=== PATIENT | female | born 1940 | race Caucasian/White ===

== ENCOUNTER 2017-11-06 07:55 | Day surgery (SDC) | payer MEDICARE, OTHER ==
[2017-11-06] MEDS ORDERED: Ketamine HCl 50 MG/ML IV ONE (07:56)
[2017-11-06] MEDS ORDERED: DIPRIVAN 200 MG/20 ML IV ONE (07:56)
--- NOTE | 2017-11-06 08:10 | HP ---
DATE OF SURGERY: 11/06/2017 HISTORY OF PRESENT ILLNESS: The patient is a 77 year-old with gross bloody stools, had positive Cologuard test, history of spinal stenosis and arthritis, chronic aches and pains. No change in bowel movements. She does have daily bowel movements. She does have incontinence and chronic spinal stenosis issues. She has been on gabapentin but not helping. She lays down to help her chronic aches and pains. She has history of polyps in the past. She has had positive Cologuard. She is in need of follow up colonoscopy. PAST MEDICAL HISTORY: Hyperlipidemia, aortic aneurysm in the past, hypertensive heart disease. PAST SURGICAL HISTORY: Hysterectomy and tubal in the past. Carotid surgery, cholecystectomy, appendectomy and endoscopy in the past. Endovascular aneurysm repair by Dr. Dukes a few weeks ago according to the patient. MEDICATIONS: Atorvastatin for some hyperlipidemia, hydrocodone, Centrum Silver, isosorbide mononitrate, lansoprazole, meloxicam, metoprolol, Naprosyn, Nitrostat, Norvasc, Paxil, VESIcare, Xanax. ALLERGIES: SULFA. VERSED REACTION. ASPIRIN CAUSES BURNING OF STOMACH. SENSITIVE TO TAPE ALTHOUGH SHE DOES TOLERATE PAPER TAPE. FAMILY HISTORY: Father of colon cancer. Heart disease. SOCIAL HISTORY: History of smoking. REVIEW OF SYSTEMS: Twelve systems reviewed per admission assessment. No chest pain or palpitations other systems negative or noncontributory as above and per preadmission questionnaire. PHYSICAL EXAMINATION: GENERAL: No acute distress. HEENT: Sclerae nonicteric. NECK: No JVD. CHEST: Equal excursion, nonlabored breathing. CVS: Regular rate and rhythm. ABDOMEN: Soft. No peritoneal signs. EXTREMITIES: No edema. NEURO: Alert, oriented. RECTAL: Deferred timed to endoscopy exam. IMPRESSION: History of polyps, positive Cologuard. The patient is in need of follow up colonoscopy. Risks and benefits explained in detail, shown the risk sheet and explained the procedure in detail but not limited to bleeding or infection, small risk of bowel injury or perforation possibly requiring open procedure, small risk of missed or nondiagnosis or incomplete exam possibly requiring barium enema, other studies or procedures, general risk of anesthesia or sedation but not limited to. She understands and agrees to the planned procedure and will proceed with outpatient colonoscopy under MAC anesthesia.
[2017-11-06] MEDS ORDERED: Lactated Ringers 1,000 ML IV SCH (08:30)
[2017-11-06] MEDS ORDERED: Lactated Ringers 1,000 ML IV ONE (11:04)
[2017-11-06 12:17] VITALS: PULSE 66; O2SAT 94
[2017-11-06 12:21] VITALS: BP 149/66
--- NOTE | 2017-11-07 08:17 | OP ---
SURGERY DATE/TIME: 11/06/2017 1030 PREOPERATIVE DIAGNOSIS: History of positive Cologuard test, history of polyps in the past need for follow up colonoscopy. POSTOPERATIVE DIAGNOSES: 1) Small raised lesion versus early polyp's transverse colon, descending colon, sigmoid colon, upper rectum as well as distal rectum. 2) Small internal and external hemorrhoids. 3) Limited sphincter tone (the patient has history of spinal stenosis in the past). 4) Diverticulosis. 5) Poor right colon prep limiting exam. PROCEDURES: Colonoscopy to cecum with hot biopsy removal small raised lesion versus early polyps transverse colon, descending colon, sigmoid colon, upper rectum, distal rectum. SURGEON: Dr. Ozzie Xiao. ANESTHESIA: MAC. ESTIMATED BLOOD LOSS: Minimal. INDICATIONS: As noted above. Risks and benefits explained in detail but not limited to and consent obtained. DESCRIPTION OF PROCEDURE AND FINDINGS: The patient is taken to the endoscopy room. MAC anesthesia introduced. After official time out and no disagreement with planned procedure, digital rectal exam did not reveal any rectal masses. She did have some internal and external hemorrhoids. Her sphincter had a little decreased tone. She has history of spinal stenosis. She had prior history of some incontinence issues. The scope was passed up through the tortuous sigmoid, descending, transverse, ascending colon to the cecum. Palpation and visualization of appendiceal orifice and valve were all visualized. Prep overall was poor particularly in the right colon. It was a little bit better in the more distal sigmoid and rectum but did limit the exam for small lesions. The scope was slowly and carefully withdrawn. There were no signs of any large polyps, masses or obstructing lesions. She had small raised lesions in the transverse colon x2 in the descending colon as well as sigmoid colon, upper rectum as well as distal rectum. Small raised lesion versus hyperplastic lesions versus early polyps. Path pending. These were removed with hot biopsy forceps with brief bursts of cautery. Good hemostasis is noted. Otherwise she had some diverticulosis. She also had some small internal and external hemorrhoids in the rectum. No signs of any large polyps, masses or obstructing lesions. Again, the prep in the right colon did limit the exam for small lesions. There were no immediate complications. Findings discussed with the family out in the waiting area.
== END 2017-11-06 12:15 | disposition home or self-care (01) ==
LOC: SDC 07:55
PROVIDERS: ATTEND Surgery
PROC: 0DBM8ZX Excision of Descending Colon, Via Natural or Artificial Opening Endoscopic, Diagnostic (ICD-10-PCS; principal; 2017-11-06)
PROC: 0DBL8ZX Excision of Transverse Colon, Via Natural or Artificial Opening Endoscopic, Diagnostic (ICD-10-PCS; 2017-11-06)
PROC: 0DBN8ZX Excision of Sigmoid Colon, Via Natural or Artificial Opening Endoscopic, Diagnostic (ICD-10-PCS; 2017-11-06)
PROC: 0DBP8ZX Excision of Rectum, Via Natural or Artificial Opening Endoscopic, Diagnostic (ICD-10-PCS; 2017-11-06)
DX: Z86.010 Personal history of colon polyps (principal); K63.5 Polyp of colon; K63.9 Disease of intestine, unspecified; K62.9 Disease of anus and rectum, unspecified; K64.4 Residual hemorrhoidal skin tags; K64.8 Other hemorrhoids; M48.00 Spinal stenosis, site unspecified; K57.30 Diverticulosis of large intestine without perforation or abscess without bleeding; Z12.11 Encounter for screening for malignant neoplasm of colon; E78.5 Hyperlipidemia, unspecified; Z80.0 Family history of malignant neoplasm of digestive organs; Z79.899 Other long term (current) drug therapy
CPT/HCPCS: 88305; 99100; J2704

== ENCOUNTER 2018-08-01 12:19 | Day surgery (SDC) | payer MEDICARE, OTHER ==
[2018-08-01] MEDS ORDERED: Depo-Medrol 40 MG/ML IJ ONE (12:20)
[2018-08-01] MEDS ORDERED: DIPRIVAN 200 MG/20 ML IV ONE (12:20)
[2018-08-01] MEDS ORDERED: Xylocaine-Mpf 2% 5 Ml Vial IJ ONE (12:20)
[2018-08-01] MEDS ORDERED: Lactated Ringers 1,000 ML IV ONE (14:33)
--- NOTE | 2018-08-01 14:56 | XRAY ---
Indication: L4-S1 MBB. Intraoperative fluoroscopy was provided for 11 seconds. Single digital spot image submitted for interpretation demonstrates posterior spinal needle tips projecting over the expected course of the left and right L4-S1 nerve roots. Correlate with intraoperative findings/report. Incidental partially visualized aortobiiliac stent graft.
--- NOTE | 2018-08-01 15:10 | XRAY ---
11 seconds of fluoroscopy was used in surgery for L4 L5 L5/S1 MBB.
== END 2018-08-01 14:32 | disposition home or self-care (01) ==
LOC: SDC-PAIN 12:19
PROVIDERS: ATTEND Psychiatry & Neurology Pain Medicine
DX: M47.817 Spondylosis without myelopathy or radiculopathy, lumbosacral region (principal); M54.5 Low back pain; M46.96 Unspecified inflammatory spondylopathy, lumbar region
CPT/HCPCS: 64493; 64494; 72020; 77003; J1030; J2704

== ENCOUNTER 2018-09-05 09:12 | Day surgery (SDC) | payer MEDICARE, OTHER ==
[2018-09-05] MEDS ORDERED: Marcaine 0.5% SDV 10 ML IJ ONE (09:13)
[2018-09-05] MEDS ORDERED: Ketamine HCl 50 MG/ML IJ ONE (09:13)
[2018-09-05] MEDS ORDERED: Depo-Medrol 40 MG/ML IM ONE (09:13)
[2018-09-05] MEDS ORDERED: DIPRIVAN 200 MG/20 ML IV ONE (09:13)
[2018-09-05] MEDS ORDERED: Xylocaine 1% Vial 30 ML PF IJ ONE (09:13)
[2018-09-05] MEDS ORDERED: Lactated Ringers 1,000 ML IV ONE (09:17)
--- NOTE | 2018-09-05 12:13 | XRAY ---
Indication: L4-S1 MBB. Intraoperative fluoroscopy was provided for 17 seconds. Single digital spot image submitted for interpretation demonstrates posterior spinal needle tips projecting over the expected course of the left and right L4-S1 nerve roots. Correlate with intraoperative findings/report. Incidental partially visualized aortobiiliac stent graft.
--- NOTE | 2018-09-05 12:16 | XRAY ---
17 seconds fluoroscopy time in surgery for L4-S1 MBB.
== END 2018-09-05 11:32 | disposition home or self-care (01) ==
LOC: SDC-PAIN 09:12
PROVIDERS: ATTEND Psychiatry & Neurology Pain Medicine
DX: M47.817 Spondylosis without myelopathy or radiculopathy, lumbosacral region (principal); I10 Essential (primary) hypertension; Z79.899 Other long term (current) drug therapy
CPT/HCPCS: 64493; 64494; 72020; 77002; 99100; J1030; J2001; J2704

== ENCOUNTER 2018-09-26 13:05 | Day surgery (SDC) | payer MEDICARE, OTHER ==
[2018-09-26] MEDS ORDERED: DIPRIVAN 200 MG/20 ML IV ONE (13:06)
[2018-09-26] MEDS ORDERED: LIDOCAINE HCL 2% 100 MG/5 ML IJ ONE (13:06)
[2018-09-26] MEDS ORDERED: Depo-Medrol 40 MG/ML IM ONE (13:06)
[2018-09-26] MEDS ORDERED: Xylocaine 1% Vial 30 ML PF IJ ONE (13:06)
[2018-09-26] MEDS ORDERED: Marcaine 0.5% SDV 10 ML IJ ONE (13:06)
[2018-09-26] MEDS ORDERED: Ketamine HCl 50 MG/ML IJ ONE (13:06)
[2018-09-26] MEDS ORDERED: Lactated Ringers 1,000 ML IV ONE (14:26)
--- NOTE | 2018-09-26 16:25 | XRAY ---
Indication: Right L4-S1 RFA. Intraoperative fluoroscopy was provided for 23 seconds. 3 digital spot images submitted for interpretation demonstrates posterior needle tips in the expected region of the right L4-S1 nerve roots. Correlate with intraoperative findings/report. Incidental partially visualized aortobiiliac stent graft.
--- NOTE | 2018-09-26 16:27 | XRAY ---
23 seconds of fluoroscopy was used in surgery for right L4-L5 and L5-S1 RFA.
== END 2018-09-26 15:42 | disposition home or self-care (01) ==
LOC: SDC-PAIN 13:05
PROVIDERS: ATTEND Psychiatry & Neurology Pain Medicine
DX: M47.817 Spondylosis without myelopathy or radiculopathy, lumbosacral region (principal); I10 Essential (primary) hypertension; E78.00 Pure hypercholesterolemia, unspecified; K21.9 Gastro-esophageal reflux disease without esophagitis; F41.8 Other specified anxiety disorders; Z79.899 Other long term (current) drug therapy
CPT/HCPCS: 64635; 64636; 72100; 77002; 99100; J1030; J2001; J2704

== ENCOUNTER 2018-10-10 13:07 | Day surgery (SDC) | payer MEDICARE, OTHER ==
[2018-10-10] MEDS ORDERED: Ketamine HCl 50 MG/ML IJ ONE (13:08)
[2018-10-10] MEDS ORDERED: DIPRIVAN 200 MG/20 ML IV ONE (13:08)
[2018-10-10] MEDS ORDERED: Xylocaine 1% Vial 30 ML PF IJ ONE (13:08)
[2018-10-10] MEDS ORDERED: Depo-Medrol 40 MG/ML IM ONE (13:08)
[2018-10-10] MEDS ORDERED: Marcaine 0.5% SDV 10 ML IJ ONE (13:08)
--- NOTE | 2018-10-10 15:05 | XRAY ---
21 seconds fluoroscopy time in surgery for left L4-S1 RFA.
--- NOTE | 2018-10-10 15:07 | XRAY ---
Indication: Left L4-S1 RFA. Intraoperative fluoroscopy was provided for 21 seconds. 2 digital spot images submitted for interpretation demonstrates posterior needle tips along the expected course of the left L4-S1 nerve roots. Correlate with intraoperative findings/report. Incidental partially visualized aortobiiliac stent graft
[2018-10-10] MEDS ORDERED: Lactated Ringers 1,000 ML IV ONE (18:06)
== END 2018-10-10 14:52 | disposition home or self-care (01) ==
LOC: SDC-PAIN 13:07
PROVIDERS: ATTEND Psychiatry & Neurology Pain Medicine
DX: M47.817 Spondylosis without myelopathy or radiculopathy, lumbosacral region (principal); Z79.899 Other long term (current) drug therapy; I10 Essential (primary) hypertension; E78.00 Pure hypercholesterolemia, unspecified; M19.90 Unspecified osteoarthritis, unspecified site; K21.9 Gastro-esophageal reflux disease without esophagitis
CPT/HCPCS: 64635; 64636; 72100; 77002; 99100; J1030; J2001; J2704

== ENCOUNTER 2019-01-02 10:45 | Day surgery (SDC) | payer MEDICARE, OTHER ==
[2019-01-02] MEDS ORDERED: Depo-Medrol 40 MG/ML IM ONE (10:46)
[2019-01-02] MEDS ORDERED: Marcaine 0.5% SDV 10 ML IJ ONE (10:46)
[2019-01-02] MEDS ORDERED: DIPRIVAN 200 MG/20 ML IV ONE (12:02)
[2019-01-02] MEDS ORDERED: Ketamine HCl 50 MG/ML ONE (12:03)
--- NOTE | 2019-01-02 13:21 | XRAY ---
Indication: Bilateral SI joint injection. Intraoperative fluoroscopy was provided for 20 seconds. 4 digital spot images submitted for interpretation demonstrates posterior needle tips projecting over the inferior left and right SI joints. Correlate with intraoperative findings/report. Incidental partially visualized bilateral iliac stent grafts.
--- NOTE | 2019-01-02 13:21 | XRAY ---
20 seconds fluoroscopy time in surgery for bilateral SI joint injection.
[2019-01-02] MEDS ORDERED: Lactated Ringers 1,000 ML IV ONE (13:27)
== END 2019-01-02 12:36 | disposition home or self-care (01) ==
LOC: SDC-PAIN 10:45
PROVIDERS: ATTEND Psychiatry & Neurology Pain Medicine
DX: M46.1 Sacroiliitis, not elsewhere classified (principal); M53.3 Sacrococcygeal disorders, not elsewhere classified; I10 Essential (primary) hypertension; E78.00 Pure hypercholesterolemia, unspecified; K21.9 Gastro-esophageal reflux disease without esophagitis; F41.8 Other specified anxiety disorders
CPT/HCPCS: 72202; 77002; G0260; 27096; 99100; J1030; J2704

== ENCOUNTER 2019-01-30 10:42 | Day surgery (SDC) | payer MEDICARE, OTHER ==
[2019-01-30] MEDS ORDERED: Depo-Medrol 40 MG/ML IM ONE (10:43)
[2019-01-30] MEDS ORDERED: Marcaine 0.5% SDV 10 ML IJ ONE (10:43)
[2019-01-30] MEDS ORDERED: Ketamine HCl 50 MG/ML ONE (11:38)
[2019-01-30] MEDS ORDERED: DIPRIVAN 200 MG/20 ML IV ONE (11:38)
--- NOTE | 2019-01-30 14:16 | XRAY ---
Indication: Left shoulder injection. Intraoperative fluoroscopy was provided for 17 seconds. Single digital spot image submitted for interpretation demonstrates needle tip projecting over the left superior glenohumeral joint. Small amount of contrast injected for needle tip placement. Correlate with intraoperative findings/report.
--- NOTE | 2019-01-30 14:28 | XRAY ---
17 seconds fluoroscopy time in surgery for left shoulder injection.
[2019-01-30] MEDS ORDERED: Lactated Ringers 1,000 ML IV ONE (15:53)
== END 2019-01-30 12:20 | disposition home or self-care (01) ==
LOC: SDC-PAIN 10:42
PROVIDERS: ATTEND Psychiatry & Neurology Pain Medicine
DX: M19.012 Primary osteoarthritis, left shoulder (principal); M19.011 Primary osteoarthritis, right shoulder; I10 Essential (primary) hypertension; E78.00 Pure hypercholesterolemia, unspecified; F41.9 Anxiety disorder, unspecified; K21.9 Gastro-esophageal reflux disease without esophagitis
CPT/HCPCS: 73030; 77002; J1030; J2704

== ENCOUNTER 2019-03-13 12:24 | Day surgery (SDC) | payer MEDICARE, OTHER ==
[2019-03-13] MEDS ORDERED: Marcaine 0.5% SDV 10 ML IJ ONE (12:25)
[2019-03-13] MEDS ORDERED: Depo-Medrol 40 MG/ML IM ONE (12:25)
[2019-03-13] MEDS ORDERED: DIPRIVAN 200 MG/20 ML IV ONE (13:45)
[2019-03-13] MEDS ORDERED: Ketamine HCl 50 MG/ML ONE (13:45)
--- NOTE | 2019-03-13 14:50 | XRAY ---
Indication: Bilateral SI joint injection. Intraoperative fluoroscopy was provided for 14 seconds. 4 digital spot images submitted for interpretation demonstrates posterior needle tip projecting over the inferior left and right SI joint. Correlate with intraoperative findings/report. Incidental partially visualized bilateral iliac stent grafts.
--- NOTE | 2019-03-13 14:53 | XRAY ---
14 seconds fluoroscopy time in surgery for bilateral SI joints.
[2019-03-13] MEDS ORDERED: Lactated Ringers 1,000 ML IV ONE (15:55)
== END 2019-03-13 14:20 | disposition home or self-care (01) ==
LOC: SDC-PAIN 12:24
PROVIDERS: ATTEND Psychiatry & Neurology Pain Medicine
DX: M46.1 Sacroiliitis, not elsewhere classified (principal); I10 Essential (primary) hypertension; E78.00 Pure hypercholesterolemia, unspecified; F41.8 Other specified anxiety disorders; K21.9 Gastro-esophageal reflux disease without esophagitis; Z79.899 Other long term (current) drug therapy
CPT/HCPCS: 72202; 77002; J1030; J2704

== ENCOUNTER 2019-04-12 12:28 | Emergency (ER) | payer MEDICARE, OTHER ==
[2019-04-12 13:29] LABS: Hematocrit 36.9 % (35-47); Mean Cell Volume 82.6 fl (78-100); Mean Corpuscular Hemoglobin 26.8 pg (26-32); Mean Corpuscular Hgb Concent. 32.5 g/dl (32-36); Platelet Count 210 K/mm3 (150-450); Red Blood Count 4.47 M/mm3 (4.1-5.4); Red Cell Distribution Width 16.3 % (11.5-14.0); White Blood Count 11.6 K/mm3 (4.0-10.5)
[2019-04-12 13:47] LABS: ALBUMIN 3.2 g/dL (3.5-5.0); ANION GAP 12.2 MEQ/L (5-15); BILIRUBIN,TOTAL 0.6 mg/dL (0.2-1.3); Creatinine 1 1.14 mg/dL (0.52-1.04); Potassium 3.6 mmol/L (3.5-5.1); Total Protein 6.7 g/dL (6.3-8.2)
[2019-04-12 14:04] LABS: BAND 16 % (0.0-2.0); Lymphocytes 14 % (24-44); Monocyte 5 % (0.0-12.0); Neutrophils 65 % (36.0-66.0); Total Cells Counted 100
[2019-04-12 14:05] LABS: Platelet Estimate NORMAL (NORMAL)
[2019-04-12 14:06] LABS: Absolute Neutrophil Ct (ANC) 9.38 (1.4-6.9)
[2019-04-12 15:47] LABS: Appearance SLIGHTLY CLOUDY (CLEAR); Bacteria MANY /HPF (NEGATIVE); Bilirubin NEGATIVE (NEGATIVE); Blood MODERATE Ery/ul (0-5); Epithelial Cells RARE /HPF (FEW); Glucose NEGATIVE (NEGATIVE); Ketones NEGATIVE (NEGATIVE); Leukocyte Esterase SMALL (NEGATIVE); Mucus SLIGHT /HPF (NEGATIVE); Nitrite POSITIVE (NEGATIVE); Protein,Urine Dip 30 (Negative); Specific Gravity 1.014 (1.005-1.025); Urobilinogen 2 mg/dL (0-1)
--- NOTE | 2019-04-12 16:02 | ERPHSYRPT ---
- History of Present Illness Time Seen by Provider: 04/12/19 13:20 Source: patient Exam Limitations: no limitations Patient Subjective Stated Complaint: STATES HAS SPELLS OF WEAKNESS INTERMITTENTLY AND STARTED FEELING WEAK YESTERDAY. DENIES PAIN Triage Nursing Assessment: TO ROOM PER EMS COT. SKIN W/D, COLOR PALE, RESP NONLABORED. Physician History: Went to doctor and told them about this; very worried about why she has had this change in her normal self. ordered lab tests but they have not been done yet. Timing/Duration: week(s) (1) Severity: moderate Modifying Factors: Improves With: nothing Associated Symptoms: other (Just not feeling right; weak at times and not usual self) Allergies/Adverse Reactions: Sulfa (Sulfonamide Antibiotics) Allergy (Mild, Verified 04/12/19 12:47) states could not sleep adhesive tape Adverse Reaction (Mild, Verified 04/12/19 12:47) Rash Home Medications: Amlodipine Besylate [Norvasc] 5 mg PO DAILY 10/24/17 [History] Atorvastatin Calcium 80 mg PO HS 10/24/17 [History] Gabapentin [Neurontin] 300 mg PO TID 10/24/17 [History] Isosorbide Mononitrate 30 mg [Imdur 30 MG] 30 mg PO DAILY 10/24/17 [History ] Lansoprazole [Prevacid] 30 mg PO DAILY 10/24/17 [History] Metoprolol Succinate 50 mg [Toprol Xl 50 MG] 50 mg PO DAILY 10/24/17 [ History] Paroxetine HCl [Paxil] 40 mg PO DAILY 10/24/17 [History] Alprazolam [Xanax] 2 mg PO DAILY 11/06/17 [History] Hx Tetanus, Diphtheria Vaccination/Date Given: No Hx Influenza Vaccination/Date Given: Yes Hx Pneumococcal Vaccination/Date Given: No - Review of Systems Constitutional: Lethargy (mild) Respiratory: No Symptoms, No Cough, No Cyanosis, No Dyspnea, No Dyspnea on Exertion (BROWER) Cardiac: No Symptoms, No Chest Pain, No Edema, No Palpitations Abdominal/Gastrointestinal: No Symptoms, No Abdominal Pain, No Nausea, No Vomiting, No Diarrhea Genitourinary Symptoms: No Symptoms, No Dysuria, No Frequency, No Hematuria, No Hesitancy (Denies UTI symptoms) All Other Systems: Reviewed and Negative - Past Medical History Pertinent Past Medical History: Yes Neurological History: No Pertinent History ENT History: No Pertinent History Cardiac History: Aneurysm, Angina, High Cholesterol, Hypertension Respiratory History: No Pertinent History Endocrine Medical History: No Pertinent History Musculoskeletal History: Arthritis GI Medical History: No Pertinent History History: No Pertinent History Psycho-Social History: Anxiety, Depression Female Reproductive Disorders: No Pertinent History - Past Surgical History Past Surgical History: Yes Neuro Surgical History: No Pertinent History Cardiac: Cardiac Catheterization, Vascular Surgery, Other Respiratory: No Pertinent History Gastrointestinal: Appendectomy, Cholecystectomy Genitourinary: No Pertinent History Musculoskeletal: Other Female Surgical History: Hysterectomy Other Surgical History: carpal tunnel,states "october aneurysm repair thru groin",skin cancer removed from face, 1971 hyster with dx of cancer, varicose veins surgery - Social History Smoking Status: Current every day smoker How long have you smoked: 62 Exposure to second hand smoke: Yes Drug Use: none Patient Lives Alone: No - Female History Hx Now: No - Nursing Vital Signs Nursing Vital Signs: Initial Vital Signs Temperature 98.1 F 04/12/19 12:39 Pulse Rate 71 04/12/19 12:39 Respiratory Rate 16 04/12/19 12:39 Blood Pressure 112/65 04/12/19 12:39 O2 Sat by Pulse Oximetry 95 04/12/19 12:39 Pain Scale Pain Intensity 0 - Physical Exam General Appearance: no apparent distress Eye Exam: PERRL/EOMI, eyes nml inspection, scleral icterus, No photophobia Ears, Nose, Throat Exam: normal ENT inspection, pharynx normal, moist mucous membranes Neck Exam: normal inspection, non-tender, supple, full range of motion Respiratory Exam: normal breath sounds, chest tenderness, lungs clear, airway intact, No respiratory distress, No diminished breath sounds Cardiovascular Exam: regular rate/rhythm, normal heart sounds, normal peripheral pulses, No edema Gastrointestinal/Abdomen Exam: soft, No tenderness Extremity Exam: normal inspection, No madeline's sign, No joint swelling, No pedal edema Neurologic Exam: alert, 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, cooperative Skin Exam: normal color, warm, dry, No rash SpO2 Interpretation: normal SpO2: 93 O2 Delivery: Room Air - Course Nursing assessment & vital signs reviewed: Yes Lab/Rad Data: Laboratory Result Diagrams 04/12/19 13:20 04/12/19 13:20 Laboratory Results 04/12/19 04/12/19 04/12/19 Range/Units 14:34 13:20 13:20 WBC 11.6 H (4.0-10.5) K/mm3 RBC 4.47 (4.1-5.4) M/mm3 Hgb 12.0 (12.0-16.0) gm/dl Hct 36.9 (35-47) % MCV 82.6 (78-100) fl MCH 26.8 (26-32) pg MCHC 32.5 (32-36) g/dl RDW 16.3 H (11.5-14.0) % Plt Count 210 (150-450) K/mm3 MPV 10.0 H (6-9.5) fl Absolute Granulocytes 9.38 H (1.4-6.9) Segmented Neutrophils 65 (36.0-66.0) % Band Neutrophils 16 H (0.0-2.0) % Lymphocytes (Manual) 14 L (24-44) % Monocytes (Manual) 5 (0.0-12.0) % Platelet Estimate NORMAL (NORMAL) RBC Morphology NORMAL Sodium 141 (137-145) mmol/L Potassium 3.6 (3.5-5.1) mmol/L Chloride 105 (98-107) mmol/L Carbon Dioxide 28 (22-30) mmol/L Anion Gap 12.2 (5-15) MEQ/L BUN 14 (7-17) mg/dL Creatinine 1.14 H (0.52-1.04) mg/dL Estimated GFR 48.7 ML/MIN Glucose 123 H (74-106) mg/dL Calcium 10.0 (8.4-10.2) mg/dL Total Bilirubin 0.60 (0.2-1.3) mg/dL AST 34 (14-36) U/L ALT 26 (0-35) U/L Alkaline Phosphatase 169 H (38-126) U/L Serum Total Protein 6.7 (6.3-8.2) g/dL Albumin 3.2 L (3.5-5.0) g/dL Urine Color LUIS (YELLOW) Urine Appearance SLIGHTLY CLOUDY (CLEAR) Urine pH 5.0 (5-6) Ur Specific [place] 1.014 (1.005-1.025) Urine Protein 30 (Negative) Urine Ketones NEGATIVE (NEGATIVE) Urine Blood MODERATE (0-5) Jose Luis/ul Urine Nitrite POSITIVE (NEGATIVE) Urine Bilirubin NEGATIVE (NEGATIVE) Urine Urobilinogen 2 (0-1) mg/dL Ur Leukocyte Esterase SMALL (NEGATIVE) Urine WBC (Auto) 16-25 (0-5) /HPF Urine RBC (Auto) 3-5 (0-2) /HPF U Epithel Cells (Auto) RARE (FEW) /HPF Urine Bacteria (Auto) MANY (NEGATIVE) /HPF Urine Mucus (Auto) SLIGHT (NEGATIVE) /HPF Urine Culture Reflexed YES (NO) Urine Glucose NEGATIVE (NEGATIVE) mg/dL - Progress Progress: unchanged Progress Note: 04/12/19 16:02 Educated re UTI and elevated WBC; Jordy does not usually have UTIs - this is unusual for her. Will place on Cipro; she is to call Dr. Trujillo and let them know of the ER visit and diagnosis. - Departure Departure Disposition: Home Clinical Impression: Weakness Urinary tract infection Qualifiers: Urinary tract infection type: acute cystitis Hematuria presence: without hematuria Qualified Code(s): N30.00 - Acute cystitis without hematuria Condition: Fair Critical Care Time: No Referrals: YAQUELIN TRUJILLO [Primary Care Provider] - Instructions: Urinary Tract Infection, Adult (DC) Additional Instructions: Take antibiotic as prescribed; call and let them know of the ER visit and DX. Follow up with her if not better next week. Prescriptions: Ciprofloxacin HCl [Cipro] 500 mg PO BID #10 tablet
[2019-04-12 16:42] VITALS: BP 128/53; PULSE 68
[2019-04-13 20:11] VITALS: O2SAT 93
== END 2019-04-12 16:40 | disposition home or self-care (01) ==
LOC: ED 12:28
DX: N30.00 Acute cystitis without hematuria (principal); R53.1 Weakness
CPT/HCPCS: 36415; 80053; 81001; 82306; 85025; 87077; 87086; 87186; 99284

== ENCOUNTER 2019-05-31 18:53 | Emergency (ER) | payer MEDICARE, OTHER ==
[2019-05-31] MEDS ORDERED: Zofran 4 MG/2 ML VIAL IV ONE (19:21)
[2019-05-31] MEDS ORDERED: Sodium Chloride 0.9% 1000 ML 1,000 ML IV STA (19:21)
--- NOTE | 2019-05-31 19:38 | ERPHSYRPT ---
- History of Present Illness Time Seen by Provider: 05/31/19 19:13 Historian: patient Exam Limitations: no limitations Patient Subjective Stated Complaint: pt states that she has had liquid diarrhea since yesterday, pt states that she has vomited clear liquid, pt states that she has went to PCP on Monday for UTI and respiratory infection, pt put on antibiotic cefdinir for 7 days, pt states that she she has had very little input today, pt states hx of AAA Triage Nursing Assessment: pt came into the er via wheelchair, pt states liquid diarrhea for the past 2 days, pt is hypertensive, active bowel sound in all quads, abdomen is soft Physician History: 78 yo presented with CC of multiple episodes of loose watery diarrhea with no hematochezia for 2 days along with mild to moderate intermittent abdominal pain /cramping. she is also having vomiting yesterday and is better today. reports not been able to hole down much as she has immediate diarrhea after oral intake since morning and as soon as gets up start having loose motions. feels dehydrated and week with no energy. denies any sick contact but has been started on omnicef for URI/UTI by PCP 2 days ago before this started. denies h/ o C Diff .no fever or chills reported. Timing/Duration: day(s) (2) Activities at Onset: rest Quality: cramping Abdominal Pain Onset Location: periumbilical, generalized abdomen Pain Radiation: no radiation Severity of Pain-Max: moderate Severity of Pain-Current: mild Associated Symptoms: diarrhea, fatigue, vomiting Allergies/Adverse Reactions: Sulfa (Sulfonamide Antibiotics) Allergy (Mild, Verified 05/31/19 19:22) states could not sleep adhesive tape Adverse Reaction (Mild, Verified 05/31/19 19:22) Rash Home Medications: Amlodipine Besylate [Norvasc] 5 mg PO DAILY 10/24/17 [History] Atorvastatin Calcium 80 mg PO HS 10/24/17 [History] Gabapentin [Neurontin] 600 mg PO TID 10/24/17 [History] Lansoprazole [Prevacid] 30 mg PO DAILY 10/24/17 [History] Metoprolol Succinate 50 mg [Toprol Xl 50 MG] 50 mg PO DAILY 10/24/17 [ History] Paroxetine HCl [Paxil] 40 mg PO DAILY 10/24/17 [History] Alprazolam [Xanax] 1 mg PO TID 11/06/17 [History] Albuterol Sulfate [Proair Hfa] 2 puff PO Q4-6HPRN PRN 05/31/19 [History] Cefdinir 300 mg PO DAILY 05/31/19 [History] Duloxetine HCl 60 mg PO DAILY 05/31/19 [History] Furosemide [Lasix] 40 mg PO DAILY 05/31/19 [History] Loratadine [Claritin] 10 mg PO DAILY 05/31/19 [History] Oxybutynin Chloride 5 mg PO DAILY 05/31/19 [History] Potassium Chloride 8 meq PO DAILY 05/31/19 [History] Solifenacin Succinate [Vesicare] 10 mg PO DAILY 05/31/19 [History] Hx Tetanus, Diphtheria Vaccination/Date Given: No Hx Influenza Vaccination/Date Given: Yes Hx Pneumococcal Vaccination/Date Given: No - Review of Systems Constitutional: Fatigue Eyes: No Symptoms Ears, Nose, & Throat: Nose Congestion, Throat Pain Respiratory: No Symptoms Cardiac: No Symptoms Abdominal/Gastrointestinal: Abdominal Pain, Nausea, Vomiting, Diarrhea, No Constipation Genitourinary Symptoms: Frequency Musculoskeletal: Back Pain Skin: No Symptoms Neurological: No Symptoms Psychological: No Symptoms Endocrine: No Symptoms Hematologic/Lymphatic: No Symptoms Immunological/Allergic: No Symptoms - Past Medical History Pertinent Past Medical History: Yes Neurological History: No Pertinent History ENT History: No Pertinent History Cardiac History: Aneurysm, Angina, High Cholesterol, Hypertension Respiratory History: No Pertinent History Endocrine Medical History: No Pertinent History Musculoskeletal History: Arthritis GI Medical History: No Pertinent History History: No Pertinent History Psycho-Social History: Anxiety, Depression Female Reproductive Disorders: No Pertinent History - Past Surgical History Past Surgical History: Yes Neuro Surgical History: No Pertinent History Cardiac: Cardiac Catheterization, Vascular Surgery, Other Respiratory: No Pertinent History Gastrointestinal: Appendectomy, Cholecystectomy Genitourinary: No Pertinent History Musculoskeletal: Other Female Surgical History: Hysterectomy Other Surgical History: carpal tunnel,states "october aneurysm repair thru groin",skin cancer removed from face, 1971 hyster with dx of cancer, varicose veins surgery - Social History Smoking Status: Current every day smoker How long have you smoked: 62 Exposure to second hand smoke: Yes Drug Use: none Patient Lives Alone: No - Nursing Vital Signs Nursing Vital Signs: Initial Vital Signs Temperature 98.3 F 05/31/19 19:05 Pulse Rate 88 05/31/19 19:05 Respiratory Rate 20 05/31/19 19:05 Blood Pressure 169/77 05/31/19 19:05 O2 Sat by Pulse Oximetry 99 05/31/19 19:05 Pain Scale Pain Intensity 4 - Physical Exam General Appearance: no apparent distress Eye Exam: PERRL/EOMI Ears, Nose, Throat Exam: pharyngeal erythema Neck Exam: normal inspection, non-tender, supple, full range of motion Respiratory Exam: normal breath sounds, lungs clear Cardiovascular Exam: regular rate/rhythm, normal heart sounds Gastrointestinal/Abdomen Exam: soft, tenderness (mild periumbilical area ), No distention, No mass, No guarding Back Exam: normal inspection, normal range of motion, No CVA tenderness Extremity Exam: normal inspection, normal range of motion Neurologic Exam: alert, 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, cooperative Skin Exam: normal color SpO2 Interpretation: normal SpO2: 99 O2 Delivery: Room Air - Course Nursing assessment & vital signs reviewed: Yes Ordered Tests: Active Orders 24 hr Category Date Time Status IV Insertion STAT Care 05/31/19 19:21 Active ABDOMEN AND PELVIS W/0 CONTRAS [CT] Stat Exams 05/31/19 19:21 Taken AMYLASE Stat Lab 05/31/19 19:46 Completed CBC W DIFF Stat Lab 05/31/19 19:46 Completed CMP Stat Lab 05/31/19 19:46 Completed LIPASE Stat Lab 05/31/19 19:46 Completed UA W/RFX UR CULTURE Stat Lab 05/31/19 21:15 Completed Medication Summary Discontinued Medications Generic Name Dose Route Start Last Admin Trade Name Yazmin PRN Reason Stop Dose Admin Sodium Chloride 1,000 mls @ 499 mls/hr 05/31/19 19:21 05/31/19 19:47 Sodium Chloride 0.9% 1000 Ml IV 05/31/19 21:21 499 mls/hr .Q2H1M STA Administration Sodium Chloride Confirm 05/31/19 19:42 Sodium Chloride 0.9% 1000 Ml Administered 05/31/19 19:43 Dose 1,000 mls @ ud .ROUTE .STK-MED ONE Ondansetron HCl 4 mg 05/31/19 19:21 05/31/19 19:47 Zofran 4 Mg/2 Ml Vial IV 05/31/19 19:22 4 mg STAT ONE Administration Ondansetron HCl Confirm 05/31/19 19:42 Zofran 4 Mg/2 Ml Vial Administered 05/31/19 19:43 Dose 4 mg .ROUTE .STK-MED ONE Lab/Rad Data: Laboratory Result Diagrams 05/31/19 19:46 05/31/19 19:46 Laboratory Results 05/31/19 05/31/19 05/31/19 Range/Units 21:15 21:15 19:46 WBC (4.0-10.5) K/mm3 RBC (4.1-5.4) M/mm3 Hgb (12.0-16.0) gm/dl Hct (35-47) % MCV (78-100) fl MCH (26-32) pg MCHC (32-36) g/dl RDW (11.5-14.0) % Plt Count (150-450) K/mm3 MPV (6-9.5) fl Gran % (36.0-66.0) % Eos # (Auto) (0-0.5) Absolute Lymphs (auto) (1.0-4.6) Absolute Monos (auto) (0.0-1.3) Lymphocytes % (24.0-44.0) % Monocytes % (0.0-12.0) % Eosinophils % (0.00-5.0) % Basophils % (0.0-0.4) % Absolute Granulocytes (1.4-6.9) Basophils # (0-0.4) Sodium 142 (137-145) mmol/L Potassium 3.7 (3.5-5.1) mmol/L Chloride 106 (98-107) mmol/L Carbon Dioxide 26 (22-30) mmol/L Anion Gap 14.4 (5-15) MEQ/L BUN 19 H (7-17) mg/dL Creatinine 1.32 H (0.52-1.04) mg/dL Estimated GFR 41.2 ML/MIN Glucose 99 (74-106) mg/dL Calcium 10.1 (8.4-10.2) mg/dL Total Bilirubin 0.80 (0.2-1.3) mg/dL AST 23 (14-36) U/L ALT 14 (0-35) U/L Alkaline Phosphatase 113 (38-126) U/L Serum Total Protein 8.5 H (6.3-8.2) g/dL Albumin 4.2 (3.5-5.0) g/dL Amylase 55 (30-110) U/L Lipase 27 (23-300) U/L Urine Color YELLOW (YELLOW) Urine Appearance SLIGHTLY CLOUDY (CLEAR) Urine pH 5.0 (5-6) Ur Specific [place] 1.020 (1.005-1.025) Urine Protein NEGATIVE (Negative) Urine Ketones NEGATIVE (NEGATIVE) Urine Blood SMALL (0-5) Jose Luis/ul Urine Nitrite NEGATIVE (NEGATIVE) Urine Bilirubin NEGATIVE (NEGATIVE) Urine Urobilinogen NEGATIVE (0-1) mg/dL Ur Leukocyte Esterase NEGATIVE (NEGATIVE) Urine WBC (Auto) 0-2 (0-5) /HPF Urine RBC (Auto) NONE (0-2) /HPF U Epithel Cells (Auto) NONE (FEW) /HPF Urine Bacteria (Auto) NONE (NEGATIVE) /HPF Urine Mucus (Auto) SLIGHT (NEGATIVE) /HPF Urine Culture Reflexed NO (NO) Urine Glucose NEGATIVE (NEGATIVE) mg/dL Stl C. cayetanensis PCR NEGATIVE (NEGATIVE) Stl Adenov F 40/41 PCR NEGATIVE (NEGATIVE) Stool Astrovirus (PCR) NEGATIVE (NEGATIVE) Stool Cryptosporidium PCR NEGATIVE (NEGATIVE) Stool EPEC (PCR) NEGATIVE (NEGATIVE) Stool EAEC (PCR) NEGATIVE (NEGATIVE) Stl E. histolytica PCR NEGATIVE (NEGATIVE) Stl P. shigelloides PCR NEGATIVE (NEGATIVE) Stool Sapovirus (PCR) NEGATIVE (NEGATIVE) St Y.enterocolitica PCR NEGATIVE (NEGATIVE) Stool Vibrio (PCR) NEGATIVE (NEGATIVE) Stl Vibrio cholerae PCR NEGATIVE (NEGATIVE) Stl Norovirus GI/GII PCR POSITIVE A (NEGATIVE) Campylobacter (PCR) NEGATIVE (NEGATIVE) C. difficile (PCR) NEGATIVE (NEGATIVE) Enterotoxigenic E. coli NEGATIVE (NEGATIVE) E.coli Shiga Toxins NEGATIVE (NEGATIVE) Giardia lamblia NEGATIVE (NEGATIVE) Rotavirus A (PCR) NEGATIVE (NEGATIVE) Salmonella (PCR) NEGATIVE (NEGATIVE) Shigella (PCR) NEGATIVE (NEGATIVE) 05/31/19 Range/Units 19:46 WBC 6.3 (4.0-10.5) K/mm3 RBC 4.97 (4.1-5.4) M/mm3 Hgb 13.2 (12.0-16.0) gm/dl Hct 41.3 (35-47) % MCV 83.1 (78-100) fl MCH 26.6 (26-32) pg MCHC 32.0 (32-36) g/dl RDW 18.7 H (11.5-14.0) % Plt Count 266 (150-450) K/mm3 MPV 9.9 H (6-9.5) fl Gran % 69.6 H (36.0-66.0) % Eos # (Auto) 0.05 (0-0.5) Absolute Lymphs (auto) 1.01 (1.0-4.6) Absolute Monos (auto) 0.84 (0.0-1.3) Lymphocytes % 16.0 L (24.0-44.0) % Monocytes % 13.3 H (0.0-12.0) % Eosinophils % 0.8 (0.00-5.0) % Basophils % 0.3 (0.0-0.4) % Absolute Granulocytes 4.38 (1.4-6.9) Basophils # 0.02 (0-0.4) Sodium (137-145) mmol/L Potassium (3.5-5.1) mmol/L Chloride (98-107) mmol/L Carbon Dioxide (22-30) mmol/L Anion Gap (5-15) MEQ/L BUN (7-17) mg/dL Creatinine (0.52-1.04) mg/dL Estimated GFR ML/MIN Glucose (74-106) mg/dL Calcium (8.4-10.2) mg/dL Total Bilirubin (0.2-1.3) mg/dL AST (14-36) U/L ALT (0-35) U/L Alkaline Phosphatase (38-126) U/L Serum Total Protein (6.3-8.2) g/dL Albumin (3.5-5.0) g/dL Amylase (30-110) U/L Lipase (23-300) U/L Urine Color (YELLOW) Urine Appearance (CLEAR) Urine pH (5-6) Ur Specific [place] (1.005-1.025) Urine Protein (Negative) Urine Ketones (NEGATIVE) Urine Blood (0-5) Jose Luis/ul Urine Nitrite (NEGATIVE) Urine Bilirubin (NEGATIVE) Urine Urobilinogen (0-1) mg/dL Ur Leukocyte Esterase (NEGATIVE) Urine WBC (Auto) (0-5) /HPF Urine RBC (Auto) (0-2) /HPF U Epithel Cells (Auto) (FEW) /HPF Urine Bacteria (Auto) (NEGATIVE) /HPF Urine Mucus (Auto) (NEGATIVE) /HPF Urine Culture Reflexed (NO) Urine Glucose (NEGATIVE) mg/dL Stl C. cayetanensis PCR (NEGATIVE) Stl Adenov F 40/41 PCR (NEGATIVE) Stool Astrovirus (PCR) (NEGATIVE) Stool Cryptosporidium PCR (NEGATIVE) Stool EPEC (PCR) (NEGATIVE) Stool EAEC (PCR) (NEGATIVE) Stl E. histolytica PCR (NEGATIVE) Stl P. shigelloides PCR (NEGATIVE) Stool Sapovirus (PCR) (NEGATIVE) St Y.enterocolitica PCR (NEGATIVE) Stool Vibrio (PCR) (NEGATIVE) Stl Vibrio cholerae PCR (NEGATIVE) Stl Norovirus GI/GII PCR (NEGATIVE) Campylobacter (PCR) (NEGATIVE) C. difficile (PCR) (NEGATIVE) Enterotoxigenic E. coli (NEGATIVE) E.coli Shiga Toxins (NEGATIVE) Giardia lamblia (NEGATIVE) Rotavirus A (PCR) (NEGATIVE) Salmonella (PCR) (NEGATIVE) Shigella (PCR) (NEGATIVE) - Progress Progress: improved, re-examined Progress Note: 78 YEARS OLD IS ADMITTED FOR GASTROENTERITIS. sHE IS GIVEN iv FLUIDS. wORKUP SHOWED MILD ACUTE KIDNEY INJURY.. sHE'LL NORMAL WHITE COUNT, GROSSLY UNREMARKABLE CHEMISTRIES. sTOOL STUDIES SHOWED POSITIVE FOR NORO virus. ct ALSO CONSISTENT WITH ENTERITIS.She has only one episode of DIARRHEA WHILE IN er. sHE IS OFFERED OBSERVATION ADMISSION BUT PATIENT DOES NOT WANT TO STAY. sHE IS ADVISED TO DRINK PLENTY OF FLUIDS AND TAKE zOFRAN NEEDED. DISCUSSED SIGNS SYMPTOMS OF WORSENING NEEDING RETURN TO THE er WHICH SHE SEEMS UNDERSTANDING. 05/31/19 23:03SHE Counseled pt/family regarding: lab results, diagnosis, need for follow-up, rad results - Departure Departure Disposition: Home Clinical Impression: Viral gastroenteritis, Acute kidney injury (nontraumatic) Condition: Stable Critical Care Time: No Referrals: YAQUELIN CABRERA [Primary Care Provider] - (2 days for re evaluation) Additional Instructions: drink plenty of fluids. Take Tylenol as needed. Followup with primary care for reevaluation.. Return to ER for any worsening. Prescriptions: Ondansetron ODT 4 MG [Zofran Odt 4 mg] 4 mg PO Q6H PRN PRN #7 tab.rapdis PRN Reason: Vomiting
[2019-05-31] MEDS ORDERED: Sodium Chloride 0.9% 1000 ML 1,000 ML ONE (19:42)
[2019-05-31] MEDS ORDERED: Zofran 4 MG/2 ML VIAL ONE (19:42)
[2019-05-31 20:01] LABS: ALBUMIN 4.2 g/dL (3.5-5.0); ANION GAP 14.4 MEQ/L (5-15); BILIRUBIN,TOTAL 0.8 mg/dL (0.2-1.3); Calcium 10.1 mg/dL (8.4-10.2); Creatinine 1 1.32 mg/dL (0.52-1.04); Potassium 3.7 mmol/L (3.5-5.1); Total Protein 8.5 g/dL (6.3-8.2)
[2019-05-31 20:13] LABS: Absolute Neutrophil Ct (ANC) 4.38 (1.4-6.9); BASOPHIL % 0.3 % (0.0-0.4); Basophil (Absolute #) 0.02 (0-0.4); Eosinophil % 0.8 % (0.00-5.0); Eosinophil (Absolute #) 0.05 (0-0.5); Hematocrit 41.3 % (35-47); Hemoglobin 13.2 gm/dl (12.0-16.0); Lymphocyte (Absolute #) 1.01 (1.0-4.6); Mean Cell Volume 83.1 fl (78-100); Mean Corpuscular Hemoglobin 26.6 pg (26-32); Mean Platelet Volume 9.9 fl (6-9.5); Monocyte (Absolute #) 0.84 (0.0-1.3); Monocytes % 13.3 % (0.0-12.0); Neutrophil % 69.6 % (36.0-66.0); Platelet Count 266 K/mm3 (150-450); Red Blood Count 4.97 M/mm3 (4.1-5.4); Red Cell Distribution Width 18.7 % (11.5-14.0); White Blood Count 6.3 K/mm3 (4.0-10.5)
[2019-05-31 21:33] LABS: Appearance SLIGHTLY CLOUDY (CLEAR); Bilirubin NEGATIVE (NEGATIVE); Blood SMALL Ery/ul (0-5); Glucose NEGATIVE (NEGATIVE); Ketones NEGATIVE (NEGATIVE); Leukocyte Esterase NEGATIVE (NEGATIVE); Mucus SLIGHT /HPF (NEGATIVE); Nitrite NEGATIVE (NEGATIVE); Protein,Urine Dip NEGATIVE (Negative); Urobilinogen NEGATIVE mg/dL (0-1); WBC 0-2 /HPF (0-5)
[2019-05-31 22:50] LABS: Adenovirus F 40/41 NEGATIVE (NEGATIVE); C. Difficile Organism NEGATIVE (NEGATIVE); Campylobacter NEGATIVE (NEGATIVE); Cryptosporidium NEGATIVE (NEGATIVE); Cyclospora cayentanensis NEGATIVE (NEGATIVE); Entamoeaba histolytica NEGATIVE (NEGATIVE); Enteroaggregative E.coli NEGATIVE (NEGATIVE); Enteropathogenic E.coli NEGATIVE (NEGATIVE); Enterotoxigenic E.coli NEGATIVE (NEGATIVE); Giardia lamblia NEGATIVE (NEGATIVE); Plesiomonas shigelloides NEGATIVE (NEGATIVE); Salmonella NEGATIVE (NEGATIVE); Shiga-like toxin prod.E.coli NEGATIVE (NEGATIVE); Vibrio NEGATIVE (NEGATIVE); Vibrio cholerae NEGATIVE (NEGATIVE); Yersinia enterocolitica NEGATIVE (NEGATIVE)
[2019-05-31 22:51] LABS: Astrovirus NEGATIVE (NEGATIVE); Norovirus GI/GII POSITIVE (NEGATIVE); Rotavirus A NEGATIVE (NEGATIVE); Sapovirus NEGATIVE (NEGATIVE)
[2019-05-31 23:25] VITALS: BP 142/60; PULSE 76; O2SAT 96
--- NOTE | 2019-06-01 08:56 | XRAY ---
Indication: Diarrhea and emesis. Multiple contiguous axial images obtained through the abdomen and pelvis without contrast as ordered. Comparison: February 26, 2019. Lung bases again demonstrates minimal fibrosis/scarring. Heart is not enlarged. Noncontrasted stomach and bowel loops appear nonobstructed. There are now several mildly fluid distended small bowel loops with fluid leveling, ileus versus enteritis. No free fluid/air. Mild sigmoid diverticulosis and small bilateral fatty inguinal hernias not previously imaged. Patient reports appendectomy, cholecystectomy, and hysterectomy. Stable bilateral adrenal hypertrophy, and bilateral renal cysts. Remaining liver, pancreas, spleen, adrenal glands, kidneys, ureters, and bladder appear unremarkable for noncontrast exam. Stable scattered arteriosclerotic disease with 3.5 cm AAA and aortobiiliac stent graft. Lack of IV contrast precludes further evaluation. Osseous structures intact again with mild/moderate degenerative changes throughout the thoracolumbar spine. Impression: 1. Mild fluid distended small bowel loops with fluid leveling, ileus versus enteritis. 2. Stable bilateral adrenal hypertrophy, bilateral renal cysts, and AAA with aortobiiliac stent graft. 3. Incidental sigmoid diverticulosis and bilateral fatty inguinal hernias. CTDI 13.43
== END 2019-05-31 23:25 | disposition home or self-care (01) ==
LOC: ED 18:53
DX: A08.4 Viral intestinal infection, unspecified (principal); N17.9 Acute kidney failure, unspecified; R10.9 Unspecified abdominal pain; R10.84 Generalized abdominal pain; R19.7 Diarrhea, unspecified; R11.10 Vomiting, unspecified; R53.83 Other fatigue; Z79.899 Other long term (current) drug therapy
CPT/HCPCS: 36000; 36415; 74176; 80053; 81001; 82150; 83690; 85025; 87507; 96374; 99284; J2405

== ENCOUNTER 2021-03-26 03:18 | Observation (INO) | payer MEDICARE, OTHER ==
[2021-03-26] MEDS ORDERED: MORPHINE SULFATE 2 MG INJ IV ONE (04:07)
[2021-03-26] MEDS ORDERED: Reglan 10 MG/2 ML IV ONE (04:07)
--- NOTE | 2021-03-26 04:07 | ERPHSYRPT ---
- History of Present Illness Time Seen by Provider: 03/26/21 03:49 Source: patient, EMS Exam Limitations: no limitations Patient Subjective Stated Complaint: C/O dizziness and "feeling weird" this am prior to calling ambulance. Patient reports sitting down after "doctoring her 's eyes" when the "spell hit." Patient indicates she had a headache during her spell that was a #10 but is now a #2 and is isolated to the right side of her head. States, "then I started to sweat and thought I was going to pass out." Patient denies actually "passing out". 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 Patient indicates she has been out of her Rosuvastatin for a few days now. Triage Nursing Assessment: Patient brought into ER via ambulance. Patient joking with medical staff and is cooperative. Alert and oriented and answering questions appropriately. Denies chest pain or SOB. No SOB noted. LLE noted to have pitting edema; patient indicates this leg has been like this for approx [address] Jama is aware. Denies any changes in vision with dizziness and headache. Physician History: 80 years old female with history of hypertension, hyperlipidemia, anxiety presented to the ER with chief complaint of sudden onset generalized moderate to severe sharp headache around 1 AM when she was sitting after taking care of her 's eye problem. Patient reports she felt as if it was going to explode and she is going to pass out but she did not. Later on she started to feel weak fatigued and tired all over with cold sweats. She also noticed having some palpitations later. Denies any focal numbness tingling or weakness. No blurry vision, diplopia or difficulty speech. Currently she is having 2/10 right-sided headache. Denies any neck pain. No chest pain or palpitations currently. Although her heart rate is in upper 40s. Does not have any difficulty breathing. No abdominal pain nausea or vomiting. Timing/Duration: hour(s) (3), sudden, improved Severity: severe Character of Deficits: none Deficits: no difficulties Baseline/Normal Cognition: alert 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 Current Cognition: alert 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 Associated Symptoms: fatigue, headache Allergies/Adverse Reactions: Sulfa (Sulfonamide Antibiotics) Allergy (Mild, Verified 03/26/21 03:47) states could not sleep adhesive tape Adverse Reaction (Mild, Verified 03/26/21 03:47) Rash Home Medications: Gabapentin [Neurontin] 600 mg PO TID 10/24/17 [History] Lansoprazole [Prevacid] 30 mg PO DAILY 10/24/17 [History] Metoprolol Succinate 50 mg [Toprol Xl 50 MG] 50 mg PO DAILY 10/24/17 [History] Alprazolam [Xanax] 1 mg PO TID 11/06/17 [History] Duloxetine HCl 60 mg PO DAILY 05/31/19 [History] Loratadine [Claritin] 10 mg PO DAILY 05/31/19 [History] Rosuvastatin Calcium 20 mg PO DAILY 03/26/21 [History] Sacubitril/Valsartan [Entresto 49 mg-51 mg Tablet] 1 each PO BID 03/26/21 [History] Hx Tetanus, Diphtheria Vaccination/Date Given: Yes Hx Influenza Vaccination/Date Given: No Hx Pneumococcal Vaccination/Date Given: No Immunizations Up to Date: Yes Travel Risk - International Travel Have you traveled outside of the country in past 3 weeks: No - Coronavirus Screening Are you exhibiting any of the following symptoms?: No Close contact with a COVID-19 positive Pt in past 14-21 Days: No - Vaccine Status Have you recieved a Covid-19 vaccination: Yes 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: [employer] - Vaccination Dates Date of 2cond Vaccination (if applicable): 09/01/2020 - Review of Systems Constitutional: No Symptoms Eyes: No Symptoms Ears, Nose, & Throat: No Symptoms Respiratory: No Symptoms Cardiac: Palpitations Abdominal/Gastrointestinal: No Symptoms Genitourinary Symptoms: No Symptoms Musculoskeletal: No Symptoms Skin: No Symptoms Neurological: Dizziness, Headache Psychological: No Symptoms Endocrine: No Symptoms Hematologic/Lymphatic: No Symptoms Immunological/Allergic: No Symptoms - Past Medical History Pertinent Past Medical History: Yes Neurological History: No Pertinent History ENT History: No Pertinent History Cardiac History: Aneurysm, Angina, Congestive Heart Failure, High Cholesterol, Hypertension Respiratory History: No Pertinent History Endocrine Medical History: No Pertinent History Musculoskeletal History: Arthritis GI Medical History: No Pertinent History History: No Pertinent History Psycho-Social History: Anxiety, Depression Female Reproductive Disorders: No Pertinent History - Past Surgical History Past Surgical History: Yes Neuro Surgical History: No Pertinent History Cardiac: Cardiac Catheterization, Cardiac Stent, Vascular Surgery, Other Respiratory: No Pertinent History Gastrointestinal: Appendectomy, Cholecystectomy Genitourinary: No Pertinent History Musculoskeletal: Other Female Surgical History: Hysterectomy Other Surgical History: carpal tunnel,states "october aneurysm repair thru groin",skin cancer removed from face, 1971 hyster with dx of cancer, varicose veins surgery - Social History Smoking Status: Current every day smoker How long have you smoked: 64 Exposure to second hand smoke: Yes Drug Use: none Patient Lives Alone: No () - Nursing Vital Signs Nursing Vital Signs: Initial Vital Signs Temperature 97.4 F 03/26/21 03:19 Pulse Rate 86 03/26/21 03:19 Respiratory Rate 20 03/26/21 03:19 Blood Pressure 214/75 03/26/21 03:19 O2 Sat by Pulse Oximetry 96 03/26/21 03:19 Pain Scale Pain Intensity 0 - Erasto Coma Scale Best Eye Response (Keno): (4) open spontaneously Best Verbal Response (Keno): (5) oriented Best Motor Response (Erasto): (6) obeys commands Erasto Total: 15 - Physical Exam General Appearance: no apparent distress, alert, anxiety Eye Exam: bilateral eye: normal inspection, PERRL, EOMI Ears, Nose, Throat Exam: normal ENT inspection, TMs normal, pharynx normal, moist mucous membranes Neck Exam: normal inspection, non-tender, supple, full range of motion Respiratory: normal breath sounds, lungs clear Cardiovascular: regular rate/rhythm, normal heart sounds Gastrointestinal: soft, normal bowel sounds, No tenderness Back Exam: normal inspection, normal range of motion Extremity Exam: normal inspection, normal range of motion, pelvis stable Mental Status: alert, 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, 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 Exam: normal hearing, normal speech, PERRL Coordination/Gait: normal finger to nose, normal cerebellar function Motor/Sensory: no motor deficit, no sensory deficit, no pronator drift, negative Babinski's sign DTR: bicep (R): 2+, bicep (L): 2+, knee (R): 2+, knee (L): 2+ Skin Exam: normal color SpO2 Interpretation: normal SpO2: 96 O2 Delivery: Room Air - Course EKG Interpreted by Me: RATE (49), Sinus Juan, NORMAL AXIS, Left Bundle Branch Block, Non-specific ST Changes Ordered Tests: Medication Summary Discontinued Medications Generic Name Dose Route Start Last Admin Trade Name Freq PRN Reason Stop Dose Admin Acetaminophen 650 mg 03/26/21 09:52 Tylenol 325 Mg PO 04/25/21 09:51 Q4H PRN PRN PAIN AND/OR FEVER Albuterol/Ipratropium 3 ml 03/26/21 09:52 Duoneb 0.5-3 Mg/3 Ml Neb IH 04/25/21 09:51 Q4HPRN PRN SHORTNESS OF BREATH/WHEEZING Alprazolam 1 mg 03/26/21 11:30 03/27/21 21:21 Xanax 1 Mg PO 04/25/21 11:29 1 mg TID NAUN Administration Amlodipine Besylate 2.5 mg 03/27/21 22:00 03/27/21 21:21 Norvasc 5 Mg PO 04/26/21 21:59 2.5 mg HS NAUN Administration Clonidine 0.1 mg 03/27/21 17:08 03/27/21 19:26 Catapres 0.1 Mg PO 04/26/21 17:07 0.1 mg Q6H PRN PRN Administration HYPERTENSION Irbesartan 150 mg/ 0 mg 03/27/21 10:00 03/27/21 10:19 Hydrochlorothiazide 12.5 mg PO 04/26/21 09:59 150 mg DAILY NAUN Administration Duloxetine HCl 60 mg 03/26/21 12:00 03/27/21 09:04 Cymbalta 30 Mg Capsule PO 04/25/21 11:59 60 mg DAILY NAUN Administration Gabapentin 600 mg 03/26/21 15:00 Neurontin 300 Mg PO 04/25/21 14:59 TID NAUN Ceftriaxone Sodium/Dextrose 2 g in 50 mls @ 100 mls/hr 03/26/21 05:23 03/26/21 05:59 Rocephin 2 Gm-D5w 50ml Bag IV 03/26/21 05:52 Infused STAT STA Infusion Ceftriaxone Sodium/Dextrose Confirm 03/26/21 05:25 Rocephin 2 Gm-D5w 50ml Bag Administered 03/26/21 05:26 Dose 2 g in 50 mls @ ud IV .STK-MED ONE Ceftriaxone Sodium/Dextrose 1 g in 50 mls @ 100 mls/hr 03/26/21 10:00 03/27/21 15:47 Rocephin 1 Gm-D5w 50 Ml Bag IV 03/29/21 09:59 Not Given Q24H10 NAUN Ceftriaxone Sodium/Dextrose 1 g in 50 mls @ 100 mls/hr 03/27/21 10:00 03/27/21 09:06 Rocephin 1 Gm-D5w 50 Ml Bag IV 03/30/21 09:59 100 mls/hr Q24H10 NAUN Administration Sodium Chloride 250 mls @ 250 mls/hr 03/26/21 17:45 03/26/21 18:45 Sodium Chloride 0.9% 250 Ml IV 03/26/21 18:44 250 mls/hr .Q1H NAUN Administration Loratadine 10 mg 03/26/21 12:00 03/27/21 09:04 Claritin 10 Mg PO 04/25/21 11:59 10 mg DAILY NAUN Administration Metoclopramide HCl 5 mg 03/26/21 04:07 03/26/21 04:35 Reglan 10 Mg/2 Ml IV 03/26/21 04:08 5 mg STAT ONE Administration Metoclopramide HCl Confirm 03/26/21 04:29 Reglan 10 Mg/2 Ml Administered 03/26/21 04:30 Dose 10 mg .ROUTE .STK-MED ONE Metoprolol Succinate 50 mg 03/26/21 12:00 03/26/21 13:40 Toprol Xl 50 Mg PO 04/25/21 11:59 Not Given DAILY NAUN Morphine Sulfate 2 mg 03/26/21 04:07 03/26/21 04:47 Morphine Sulfate 2 Mg Inj IV 03/26/21 04:08 2 mg STAT ONE Administration Morphine Sulfate Confirm 03/26/21 04:29 Morphine Sulfate 2 Mg Inj Administered 03/26/21 04:30 Dose 2 mg .ROUTE .STK-MED ONE Ondansetron HCl 4 mg 03/26/21 09:52 Zofran 4 Mg/2 Ml Vial IV 04/25/21 09:51 Q6H PRN PRN NAUSEA/VOMITING Pantoprazole Sodium 40 mg 03/26/21 11:00 03/26/21 12:26 Protonix 40 Mg Iv IV 04/25/21 10:59 Not Given Q24H10 NAUN Pantoprazole Sodium 40 mg 03/26/21 12:00 03/27/21 09:04 Protonix 40mg Tablet PO 04/25/21 11:59 40 mg DAILY NAUN Administration Sacubitril/Valsartan 1 tablet 03/26/21 12:00 03/27/21 21:21 Entresto 49 Mg-51 Mg Tablet PO 04/25/21 11:59 1 tablet BID NAUN Administration Simvastatin 40 mg 03/27/21 10:00 03/27/21 09:04 Zocor 20mg PO 04/26/21 09:59 40 mg DAILY NAUN Administration Lab/Rad Data: Laboratory Result Diagrams 03/26/21 04:20 03/26/21 04:20 Laboratory Results 03/26/21 03/26/21 03/26/21 Range/Units 08:03 06:40 04:20 WBC (4.0-10.5) K/mm3 RBC (4.1-5.4) M/mm3 Hgb (12.0-16.0) gm/dl Hct (35-47) % MCV (78-100) fl MCH (26-32) pg MCHC (32-36) g/dl RDW (11.5-14.0) % Plt Count (150-450) K/mm3 MPV (7.5-11.0) fl Gran % (36.0-66.0) % Eos # (Auto) (0-0.5) Absolute Lymphs (auto) (1.0-4.6) Absolute Monos (auto) (0.0-1.3) Lymphocytes % (24.0-44.0) % Monocytes % (0.0-12.0) % Eosinophils % (0.00-5.0) % Basophils % (0.0-0.4) % Absolute Granulocytes (1.4-6.9) Basophils # (0-0.4) ESR 27 H (0-20) mm/hr Sodium (137-145) mmol/L Potassium (3.5-5.1) mmol/L Chloride (98-107) mmol/L Carbon Dioxide (22-30) mmol/L Anion Gap (5-15) MEQ/L BUN (7-17) mg/dL Creatinine (0.52-1.04) mg/dL Estimated GFR ML/MIN Glucose (74-106) mg/dL Calcium (8.4-10.2) mg/dL Magnesium (1.6-2.3) mg/dL Total Bilirubin (0.2-1.3) mg/dL AST (14-36) U/L ALT (0-35) U/L Alkaline Phosphatase (38-126) U/L Troponin I 0.014 (0.000-0.034) ng/mL Serum Total Protein (6.3-8.2) g/dL Albumin (3.5-5.0) g/dL Urine Color (YELLOW) Urine Appearance (CLEAR) Urine pH (5-6) Ur Specific [place] (1.005-1.025) Urine Protein (Negative) Urine Ketones (NEGATIVE) Urine Blood (0-5) Jose Luis/ul Urine Nitrite (NEGATIVE) Urine Bilirubin (NEGATIVE) Urine Urobilinogen (0-1) mg/dL Ur Leukocyte Esterase (NEGATIVE) Urine WBC (Auto) (0-5) /HPF Urine RBC (Auto) (0-2) /HPF U Epithel Cells (Auto) (FEW) /HPF Urine Bacteria (Auto) (NEGATIVE) /HPF Urine Mucus (Auto) (NEGATIVE) /HPF Urine Culture Reflexed (NO) Urine Glucose (NEGATIVE) mg/dL SARS-CoV-2 (PCR) NEGATIVE (NEGATIVE) 03/26/21 03/26/21 03/26/21 Range/Units 04:20 04:20 04:20 WBC (4.0-10.5) K/mm3 RBC (4.1-5.4) M/mm3 Hgb (12.0-16.0) gm/dl Hct (35-47) % MCV (78-100) fl MCH (26-32) pg MCHC (32-36) g/dl RDW (11.5-14.0) % Plt Count (150-450) K/mm3 MPV (7.5-11.0) fl Gran % (36.0-66.0) % Eos # (Auto) (0-0.5) Absolute Lymphs (auto) (1.0-4.6) Absolute Monos (auto) (0.0-1.3) Lymphocytes % (24.0-44.0) % Monocytes % (0.0-12.0) % Eosinophils % (0.00-5.0) % Basophils % (0.0-0.4) % Absolute Granulocytes (1.4-6.9) Basophils # (0-0.4) ESR (0-20) mm/hr Sodium 139 (137-145) mmol/L Potassium 3.6 (3.5-5.1) mmol/L Chloride 102 (98-107) mmol/L Carbon Dioxide 28 (22-30) mmol/L Anion Gap 12.9 (5-15) MEQ/L BUN 13 (7-17) mg/dL Creatinine 0.93 (0.52-1.04) mg/dL Estimated GFR > 60.0 ML/MIN Glucose 124 H (74-106) mg/dL Calcium 10.2 (8.4-10.2) mg/dL Magnesium 1.7 (1.6-2.3) mg/dL Total Bilirubin 0.40 (0.2-1.3) mg/dL AST 27 (14-36) U/L ALT 11 (0-35) U/L Alkaline Phosphatase 87 (38-126) U/L Troponin I 0.012 (0.000-0.034) ng/mL Serum Total Protein 7.7 (6.3-8.2) g/dL Albumin 4.4 (3.5-5.0) g/dL Urine Color (YELLOW) Urine Appearance (CLEAR) Urine pH (5-6) Ur Specific [place] (1.005-1.025) Urine Protein (Negative) Urine Ketones (NEGATIVE) Urine Blood (0-5) Jose Luis/ul Urine Nitrite (NEGATIVE) Urine Bilirubin (NEGATIVE) Urine Urobilinogen (0-1) mg/dL Ur Leukocyte Esterase (NEGATIVE) Urine WBC (Auto) (0-5) /HPF Urine RBC (Auto) (0-2) /HPF U Epithel Cells (Auto) (FEW) /HPF Urine Bacteria (Auto) (NEGATIVE) /HPF Urine Mucus (Auto) (NEGATIVE) /HPF Urine Culture Reflexed (NO) Urine Glucose (NEGATIVE) mg/dL SARS-CoV-2 (PCR) (NEGATIVE) 03/26/21 03/26/21 Range/Units 04:20 04:04 WBC 9.2 (4.0-10.5) K/mm3 RBC 4.35 (4.1-5.4) M/mm3 Hgb 12.2 (12.0-16.0) gm/dl Hct 39.5 (35-47) % MCV 90.8 (78-100) fl MCH 28.0 (26-32) pg MCHC 30.9 L (32-36) g/dl RDW 14.7 H (11.5-14.0) % Plt Count 261 (150-450) K/mm3 MPV 10.3 (7.5-11.0) fl Gran % 75.6 H (36.0-66.0) % Eos # (Auto) 0.10 (0-0.5) Absolute Lymphs (auto) 1.33 (1.0-4.6) Absolute Monos (auto) 0.79 (0.0-1.3) Lymphocytes % 14.5 L (24.0-44.0) % Monocytes % 8.6 (0.0-12.0) % Eosinophils % 1.1 (0.00-5.0) % Basophils % 0.2 (0.0-0.4) % Absolute Granulocytes 6.94 H (1.4-6.9) Basophils # 0.02 (0-0.4) ESR (0-20) mm/hr Sodium (137-145) mmol/L Potassium (3.5-5.1) mmol/L Chloride (98-107) mmol/L Carbon Dioxide (22-30) mmol/L Anion Gap (5-15) MEQ/L BUN (7-17) mg/dL Creatinine (0.52-1.04) mg/dL Estimated GFR ML/MIN Glucose (74-106) mg/dL Calcium (8.4-10.2) mg/dL Magnesium (1.6-2.3) mg/dL Total Bilirubin (0.2-1.3) mg/dL AST (14-36) U/L ALT (0-35) U/L Alkaline Phosphatase (38-126) U/L Troponin I (0.000-0.034) ng/mL Serum Total Protein (6.3-8.2) g/dL Albumin (3.5-5.0) g/dL Urine Color YELLOW (YELLOW) Urine Appearance SLIGHTLY CLOUDY (CLEAR) Urine pH 6.0 (5-6) Ur Specific [place] 1.008 (1.005-1.025) Urine Protein NEGATIVE (Negative) Urine Ketones NEGATIVE (NEGATIVE) Urine Blood SMALL (0-5) Jose Luis/ul Urine Nitrite POSITIVE (NEGATIVE) Urine Bilirubin NEGATIVE (NEGATIVE) Urine Urobilinogen NEGATIVE (0-1) mg/dL Ur Leukocyte Esterase TRACE (NEGATIVE) Urine WBC (Auto) 6-10 (0-5) /HPF Urine RBC (Auto) NONE (0-2) /HPF U Epithel Cells (Auto) NONE (FEW) /HPF Urine Bacteria (Auto) MANY (NEGATIVE) /HPF Urine Mucus (Auto) SLIGHT (NEGATIVE) /HPF Urine Culture Reflexed YES (NO) Urine Glucose NEGATIVE (NEGATIVE) mg/dL SARS-CoV-2 (PCR) (NEGATIVE) - Progress Progress: improved, re-examined Progress Note: 03/26/21 07:02 SOC neurology consultation is obtained. Recommended CTA head and neck and if CTAs are fine load her up with 300 Plavix and start her on 75 daily. Also recommended obtaining MRI brain with and without contrast. No opiates for headache to see if it recurs or not. Discussed with Dr. Agudelo, patient is being admitted for observation. Discussed with : Bre, Other Will see patient in: hospital (observation) Counseled pt/family regarding: lab results, diagnosis, need for follow-up, rad results - Departure Departure Disposition: Observation Clinical Impression: Stroke-like symptoms, Uncontrolled hypertension Urinary tract infection Qualifiers: Urinary tract infection type: site unspecified Hematuria presence: without hematuria Qualified Code(s): N39.0 - Urinary tract infection, site not specified Condition: Stable Critical Care Time: No
[2021-03-26 04:26] LABS: Absolute Neutrophil Ct (ANC) 6.94 (1.4-6.9); BASOPHIL % 0.2 % (0.0-0.4); Basophil (Absolute #) 0.02 (0-0.4); Eosinophil % 1.1 % (0.00-5.0); Hematocrit 39.5 % (35-47); Hemoglobin 12.2 gm/dl (12.0-16.0); Lymphocyte (Absolute #) 1.33 (1.0-4.6); Lymphocytes % 14.5 % (24.0-44.0); Mean Cell Volume 90.8 fl (78-100); Mean Corpuscular Hgb Concent. 30.9 g/dl (32-36); Mean Platelet Volume 10.3 fl (7.5-11.0); Monocyte (Absolute #) 0.79 (0.0-1.3); Monocytes % 8.6 % (0.0-12.0); Neutrophil % 75.6 % (36.0-66.0); Platelet Count 261 K/mm3 (150-450); Red Blood Count 4.35 M/mm3 (4.1-5.4); Red Cell Distribution Width 14.7 % (11.5-14.0); White Blood Count 9.2 K/mm3 (4.0-10.5)
[2021-03-26] MEDS ORDERED: MORPHINE SULFATE 2 MG INJ ONE (04:29)
[2021-03-26] MEDS ORDERED: Reglan 10 MG/2 ML ONE (04:29)
[2021-03-26 04:35] LABS: ALBUMIN 4.4 g/dL (3.5-5.0); ALKALINE PHOSPHATASE 87 U/L (38-126); ANION GAP 12.9 MEQ/L (5-15); BLOOD UREA NITROGEN 13 mg/dL (7-17); CHLORIDE 102 mmol/L (98-107); Calcium 10.2 mg/dL (8.4-10.2); Carbon Dioxide 28 mmol/L (22-30); Creatinine 1 0.93 mg/dL (0.52-1.04); EST GLOMERULAR FILTRATION RATE > 60.0 ML/MIN; Glucose 124 mg/dL (74-106); Potassium 3.6 mmol/L (3.5-5.1); SGOT/AST 27 U/L (14-36); SGPT/ALT 11 U/L (0-35); SODIUM 139 mmol/L (137-145); Total Protein 7.7 g/dL (6.3-8.2)
[2021-03-26 04:37] LABS: Appearance SLIGHTLY CLOUDY (CLEAR); Bacteria MANY /HPF (NEGATIVE); Bilirubin NEGATIVE (NEGATIVE); Blood SMALL Ery/ul (0-5); Glucose NEGATIVE (NEGATIVE); Ketones NEGATIVE (NEGATIVE); Leukocyte Esterase TRACE (NEGATIVE); Mucus SLIGHT /HPF (NEGATIVE); Nitrite POSITIVE (NEGATIVE); Protein,Urine Dip NEGATIVE (Negative); Specific Gravity 1.008 (1.005-1.025); Urobilinogen NEGATIVE mg/dL (0-1)
[2021-03-26] MEDS ORDERED: ROCEPHIN 2 Gm-D5w 50ML BAG** 2 G/50 ML IVPB IV STA (05:23)
[2021-03-26] MEDS ORDERED: ROCEPHIN 2 Gm-D5w 50ML BAG** 2 G/50 ML IVPB IV ONE (05:25)
--- NOTE | 2021-03-26 08:43 | XRAY ---
Indication: Near syncope. Hypertension. Multiple contiguous axial images obtained through the head without contrast. Comparison: None Age-appropriate global atrophy and moderate periventricular degenerative micro-ischemia bilaterally. No acute intracranial hemorrhage, abnormal extra-axial fluid collection, or mass effect. Fourth ventricle is midline without hydrocephalus. Bony calvarium intact. Visualized paranasal sinuses and mastoid air cells are clear. Impression: Nonacute senile brain. Comment: Preliminary interpretation made by [facility]. No critical discrepancy.
--- NOTE | 2021-03-26 08:49 | XRAY ---
Indication: Stroke symptoms. Headache. Hypertension. Conventional contrast enhanced CTA neck performed using 80 cc Isovue 370 contrast. Two-dimensional sagittal and coronal reformatted images obtained. Additional 3-dimensional reformatted images obtained using separate workstation. Comparison: None Aortic arch demonstrates mild arteriosclerotic calcifications without aneurysm/dissection. Normal branching right brachiocephalic, left common carotid, and left subclavian arteries with minimal calcifications at the origins. Right carotid circulation demonstrates moderate eccentric arteriosclerotic calcifications origin/proximal internal carotid artery producing 50-60% stenosis. Remaining common carotid, carotid bulb, and external carotid arteries are normal in CTA appearance. Left carotid circulation demonstrates minimal carotid bulb eccentric calcifications extending into the origin internal carotid artery producing 20-30% stenosis. Remaining common carotid and external carotid arteries are normal in CTA appearance. Vertebral arteries are bilaterally asymmetric without critical stenosis, obstruction, or AV malformation. Venous system unremarkable. CTA head reported separately. Visualized noncontrasted soft tissues demonstrates a few subcentimeter cervical/submandibular nodes bilaterally. No pathologic lymphadenopathy. Parotid and submandibular glands are bilaterally symmetric. Thyroid gland enhances homogeneously. Supra-and infraglottic airway widely patent. Osseous structures intact with mild osteopenia and mild multilevel lumbar degenerative changes. Visualized lungs demonstrates mild biapical subpleural cystic changes. Impression: 1. 50-60% stenosis right internal carotid artery and 20-30% stenosis left internal carotid artery. 2. Normal vertebral arteries bilaterally. 3. Incidental biapical subpleural cystic changes and chronic bony findings.
--- NOTE | 2021-03-26 08:53 | XRAY ---
Indication: Stroke symptoms. Headache. Hypertension. Conventional contrast enhanced CTA head performed using 80 cc Isovue 370 contrast. Two-dimensional sagittal and coronal reformatted images obtained. Additional 3-dimensional reformatted images obtained using separate workstation. Comparison: None CTA neck reported separately. Distal internal carotid arteries are bilaterally symmetric with mild scattered arteriosclerotic calcifications involving both parasellar segments. No critical stenosis, obstruction, or AV malformation. Normal carotid terminus with normal branching A1 and M1 segments bilaterally. More distal anterior cerebral, middle cerebral, anterior communicating, and posterior communication arteries are normal in CTA appearance. Basilar artery, posterior cerebral, superior cerebellar, and anterior inferior cerebellar arteries are normal in CTA appearance. Venous system unremarkable. No abnormal enhancing intra or extra-axial mass. Impression: Mild scattered arteriosclerotic calcifications both internal carotid arteries without critical stenosis/obstruction. Remaining CTA head is negative.
--- NOTE | 2021-03-26 09:20 | XRAY ---
Indication: Hypertension. Comparison: March 02, 2017. Portable chest remains hyperinflated and clear. Heart not enlarged for AP portable technique. Bony thorax intact again with mild osteopenia, degenerative changes, and dextroscoliosis. No new/acute findings. Comment: Preliminary interpretation made by [facility]. No critical discrepancy.
[2021-03-26] MEDS ORDERED: DUONEB 0.5-3 MG/3 ml Neb IH PRN (09:52)
[2021-03-26] MEDS ORDERED: TYLENOL 325 MG PO PRN (09:52)
[2021-03-26] MEDS ORDERED: Zofran 4 MG/2 ML VIAL IV PRN (09:52)
[2021-03-26] MEDS ORDERED: ROCEPHIN 1 Gm-D5w 50 ml Bag** 1 G/50 ML IVPB IV SCH (10:00)
[2021-03-26] MEDS ORDERED: PROTONIX 40 MG IV IV SCH (11:00)
[2021-03-26] MEDS ORDERED: Toprol Xl 50 MG PO SCH (12:00)
[2021-03-26] MEDS: Cymbalta 30 MG Capsule PO SCH (12:09)
[2021-03-26] MEDS: Protonix 40MG Tablet PO SCH (12:10)
[2021-03-26] MEDS: XANAX 1 MG PO SCH ×3 (12:10→21:11)
[2021-03-26] MEDS: ENTRESTO 49 MG-51 MG TABLET PO SCH ×2 (12:10→21:11)
[2021-03-26] MEDS: CLARITIN 10 MG PO SCH (12:10)
[2021-03-26] MEDS ORDERED: ALPRAZOLAM 1 MG PO SCH (15:00)
[2021-03-26] MEDS ORDERED: NEURONTIN 300 MG PO SCH (15:00)
--- NOTE | 2021-03-26 16:25 | PCM.HP ---
History of Present Illness - Chief Complaint Chief Complaint: Urinary Tract Infection History of Present Illness: is a 80 year old female patient of Dr Bourne's and followed by [employer] Installer,Dr Jama who has PMHx HTN,CHF,AAA taht was repaired. Patient had a spell of weakness and diaphoresis and severe right frontal headache and family called ambulance . ER eval included Teleneuro.She was admitted for observation and further testing. She has a UTI and was started on Rocephin in [facility] ER. Medications & Allergies Home Medications: Home Medication List Gabapentin [Neurontin] 600 mg PO TID 10/24/17 [History Confirmed 03/26/21] Lansoprazole [Prevacid] 30 mg PO DAILY 10/24/17 [History Confirmed 03/26/21] Metoprolol Succinate 50 mg [Toprol Xl 50 MG] 50 mg PO DAILY 10/24/17 [History Confirmed 03/26/21] Alprazolam [Xanax] 1 mg PO TID 11/06/17 [History Confirmed 03/26/21] Duloxetine HCl 60 mg PO DAILY 05/31/19 [History Confirmed 03/26/21] Loratadine [Claritin] 10 mg PO DAILY 05/31/19 [History Confirmed 03/26/21] Rosuvastatin Calcium 20 mg PO DAILY 03/26/21 [History Confirmed 03/26/21] Sacubitril/Valsartan [Entresto 49 mg-51 mg Tablet] 1 each PO BID 03/26/21 [History Confirmed 03/26/21] Ciprofloxacin [Cipro 500 MG] 500 mg PO BID #10 tablet 03/28/21 [Rx] Allergies/Adverse Reactions: Allergies Allergy/AdvReac Type Severity Reaction Status Date / Time Sulfa (Sulfonamide Allergy Mild Verified 03/26/21 03:47 Antibiotics) adhesive tape AdvReac Mild Rash Verified 03/26/21 03:47 - Past Medical History Past Medical History: Yes Neurological History: No Pertinent History ENT History: Cataracts Cardiac History: Aneurysm, Congestive Heart Failure, Hypertension Respiratory History: No Pertinent History Endocrine Medical History: No Pertinent History Musculoskelatal History: Arthritis GI Medical History: No Pertinent History History: No Pertinent History Pyscho-Social History: Anxiety, Depression Reproductive Disorders: Uterine Cancer - Female History Are you now?: No - Past Surgical History Past Surgical History: Yes Neuro Surgical History: No Pertinent History Cardiac History: Cardiac Stent Respiratory Surgery: No Pertinent History GI Surgical History: Appendectomy, Cholecystectomy Genitourinary Surgical Hx: No Pertinent History Musculskeletal Surgical Hx: Orthopedic Surgery Female Surgical History: Hysterectomy, Dilation & Curettage Other Surgical History: Right knee Surgery. Lower Back Surgery - Social History Smoking Status: Current every day smoker How long have you smoked: 62 years Exposure to second hand smoke: Yes Alcohol: None Drug Use: none - Physical Exam Vital Signs: Vital Signs - 24 hr Temp Pulse Resp BP Pulse Ox 03/26/21 14:20 165/72 03/26/21 12:00 98.7 F 48 L 12 197/80 95 03/26/21 11:22 48 L 16 95 03/26/21 09:54 98.6 F 54 L 16 185/79 94 L 03/26/21 09:39 184/77 03/26/21 08:00 55 L 22 202/65 94 L 03/26/21 07:04 96 03/26/21 06:25 58 L 16 163/50 98 03/26/21 05:50 48 L 19 198/61 94 L 03/26/21 04:52 59 L 19 210/73 97 03/26/21 03:19 97.4 F 86 20 214/75 96 Results - Labs Lab/Micro Results: Lab Results-Last 24 Hours 03/26/21 03/26/21 03/26/21 Range/Units 04:04 04:20 04:20 WBC 9.2 (4.0-10.5) K/mm3 RBC 4.35 (4.1-5.4) M/mm3 Hgb 12.2 (12.0-16.0) gm/dl Hct 39.5 (35-47) % MCV 90.8 (78-100) fl MCH 28.0 (26-32) pg MCHC 30.9 L (32-36) g/dl RDW 14.7 H (11.5-14.0) % Plt Count 261 (150-450) K/mm3 MPV 10.3 (7.5-11.0) fl Gran % 75.6 H (36.0-66.0) % Eos # (Auto) 0.10 (0-0.5) Absolute Lymphs (auto) 1.33 (1.0-4.6) Absolute Monos (auto) 0.79 (0.0-1.3) Lymphocytes % 14.5 L (24.0-44.0) % Monocytes % 8.6 (0.0-12.0) % Eosinophils % 1.1 (0.00-5.0) % Basophils % 0.2 (0.0-0.4) % Absolute Granulocytes 6.94 H (1.4-6.9) Basophils # 0.02 (0-0.4) ESR (0-20) mm/hr Sodium 139 (137-145) mmol/L Potassium 3.6 (3.5-5.1) mmol/L Chloride 102 (98-107) mmol/L Carbon Dioxide 28 (22-30) mmol/L Anion Gap 12.9 (5-15) MEQ/L BUN 13 (7-17) mg/dL Creatinine 0.93 (0.52-1.04) mg/dL Estimated GFR > 60.0 ML/MIN Glucose 124 H (74-106) mg/dL Calcium 10.2 (8.4-10.2) mg/dL Magnesium (1.6-2.3) mg/dL Total Bilirubin 0.40 (0.2-1.3) mg/dL AST 27 (14-36) U/L ALT 11 (0-35) U/L Alkaline Phosphatase 87 (38-126) U/L Troponin I (0.000-0.034) ng/mL Serum Total Protein 7.7 (6.3-8.2) g/dL Albumin 4.4 (3.5-5.0) g/dL Urine Color YELLOW (YELLOW) Urine Appearance SLIGHTLY CLOUDY (CLEAR) Urine pH 6.0 (5-6) Ur Specific Leopold 1.008 (1.005-1.025) Urine Protein NEGATIVE (Negative) Urine Ketones NEGATIVE (NEGATIVE) Urine Blood SMALL (0-5) Jose Luis/ul Urine Nitrite POSITIVE (NEGATIVE) Urine Bilirubin NEGATIVE (NEGATIVE) Urine Urobilinogen NEGATIVE (0-1) mg/dL Ur Leukocyte Esterase TRACE (NEGATIVE) Urine WBC (Auto) 6-10 (0-5) /HPF Urine RBC (Auto) NONE (0-2) /HPF U Epithel Cells (Auto) NONE (FEW) /HPF Urine Bacteria (Auto) MANY (NEGATIVE) /HPF Urine Mucus (Auto) SLIGHT (NEGATIVE) /HPF Urine Culture Reflexed YES (NO) Urine Glucose NEGATIVE (NEGATIVE) mg/dL SARS-CoV-2 (PCR) (NEGATIVE) 03/26/21 03/26/21 03/26/21 Range/Units 04:20 04:20 04:20 WBC (4.0-10.5) K/mm3 RBC (4.1-5.4) M/mm3 Hgb (12.0-16.0) gm/dl Hct (35-47) % MCV (78-100) fl MCH (26-32) pg MCHC (32-36) g/dl RDW (11.5-14.0) % Plt Count (150-450) K/mm3 MPV (7.5-11.0) fl Gran % (36.0-66.0) % Eos # (Auto) (0-0.5) Absolute Lymphs (auto) (1.0-4.6) Absolute Monos (auto) (0.0-1.3) Lymphocytes % (24.0-44.0) % Monocytes % (0.0-12.0) % Eosinophils % (0.00-5.0) % Basophils % (0.0-0.4) % Absolute Granulocytes (1.4-6.9) Basophils # (0-0.4) ESR 27 H (0-20) mm/hr Sodium (137-145) mmol/L Potassium (3.5-5.1) mmol/L Chloride (98-107) mmol/L Carbon Dioxide (22-30) mmol/L Anion Gap (5-15) MEQ/L BUN (7-17) mg/dL Creatinine (0.52-1.04) mg/dL Estimated GFR ML/MIN Glucose (74-106) mg/dL Calcium (8.4-10.2) mg/dL Magnesium 1.7 (1.6-2.3) mg/dL Total Bilirubin (0.2-1.3) mg/dL AST (14-36) U/L ALT (0-35) U/L Alkaline Phosphatase (38-126) U/L Troponin I 0.012 (0.000-0.034) ng/mL Serum Total Protein (6.3-8.2) g/dL Albumin (3.5-5.0) g/dL Urine Color (YELLOW) Urine Appearance (CLEAR) Urine pH (5-6) Ur Specific Leopold (1.005-1.025) Urine Protein (Negative) Urine Ketones (NEGATIVE) Urine Blood (0-5) Jose Luis/ul Urine Nitrite (NEGATIVE) Urine Bilirubin (NEGATIVE) Urine Urobilinogen (0-1) mg/dL Ur Leukocyte Esterase (NEGATIVE) Urine WBC (Auto) (0-5) /HPF Urine RBC (Auto) (0-2) /HPF U Epithel Cells (Auto) (FEW) /HPF Urine Bacteria (Auto) (NEGATIVE) /HPF Urine Mucus (Auto) (NEGATIVE) /HPF Urine Culture Reflexed (NO) Urine Glucose (NEGATIVE) mg/dL SARS-CoV-2 (PCR) (NEGATIVE) 03/26/21 03/26/21 03/26/21 Range/Units 06:40 08:03 09:45 WBC (4.0-10.5) K/mm3 RBC (4.1-5.4) M/mm3 Hgb (12.0-16.0) gm/dl Hct (35-47) % MCV (78-100) fl MCH (26-32) pg MCHC (32-36) g/dl RDW (11.5-14.0) % Plt Count (150-450) K/mm3 MPV (7.5-11.0) fl Gran % (36.0-66.0) % Eos # (Auto) (0-0.5) Absolute Lymphs (auto) (1.0-4.6) Absolute Monos (auto) (0.0-1.3) Lymphocytes % (24.0-44.0) % Monocytes % (0.0-12.0) % Eosinophils % (0.00-5.0) % Basophils % (0.0-0.4) % Absolute Granulocytes (1.4-6.9) Basophils # (0-0.4) ESR (0-20) mm/hr Sodium (137-145) mmol/L Potassium (3.5-5.1) mmol/L Chloride (98-107) mmol/L Carbon Dioxide (22-30) mmol/L Anion Gap (5-15) MEQ/L BUN (7-17) mg/dL Creatinine (0.52-1.04) mg/dL Estimated GFR ML/MIN Glucose (74-106) mg/dL Calcium (8.4-10.2) mg/dL Magnesium (1.6-2.3) mg/dL Total Bilirubin (0.2-1.3) mg/dL AST (14-36) U/L ALT (0-35) U/L Alkaline Phosphatase (38-126) U/L Troponin I 0.014 0.022 (0.000-0.034) ng/mL Serum Total Protein (6.3-8.2) g/dL Albumin (3.5-5.0) g/dL Urine Color (YELLOW) Urine Appearance (CLEAR) Urine pH (5-6) Ur Specific Leopold (1.005-1.025) Urine Protein (Negative) Urine Ketones (NEGATIVE) Urine Blood (0-5) Jose Luis/ul Urine Nitrite (NEGATIVE) Urine Bilirubin (NEGATIVE) Urine Urobilinogen (0-1) mg/dL Ur Leukocyte Esterase (NEGATIVE) Urine WBC (Auto) (0-5) /HPF Urine RBC (Auto) (0-2) /HPF U Epithel Cells (Auto) (FEW) /HPF Urine Bacteria (Auto) (NEGATIVE) /HPF Urine Mucus (Auto) (NEGATIVE) /HPF Urine Culture Reflexed (NO) Urine Glucose (NEGATIVE) mg/dL SARS-CoV-2 (PCR) NEGATIVE (NEGATIVE) 03/26/21 Range/Units 12:45 WBC (4.0-10.5) K/mm3 RBC (4.1-5.4) M/mm3 Hgb (12.0-16.0) gm/dl Hct (35-47) % MCV (78-100) fl MCH (26-32) pg MCHC (32-36) g/dl RDW (11.5-14.0) % Plt Count (150-450) K/mm3 MPV (7.5-11.0) fl Gran % (36.0-66.0) % Eos # (Auto) (0-0.5) Absolute Lymphs (auto) (1.0-4.6) Absolute Monos (auto) (0.0-1.3) Lymphocytes % (24.0-44.0) % Monocytes % (0.0-12.0) % Eosinophils % (0.00-5.0) % Basophils % (0.0-0.4) % Absolute Granulocytes (1.4-6.9) Basophils # (0-0.4) ESR (0-20) mm/hr Sodium (137-145) mmol/L Potassium (3.5-5.1) mmol/L Chloride (98-107) mmol/L Carbon Dioxide (22-30) mmol/L Anion Gap (5-15) MEQ/L BUN (7-17) mg/dL Creatinine (0.52-1.04) mg/dL Estimated GFR ML/MIN Glucose (74-106) mg/dL Calcium (8.4-10.2) mg/dL Magnesium (1.6-2.3) mg/dL Total Bilirubin (0.2-1.3) mg/dL AST (14-36) U/L ALT (0-35) U/L Alkaline Phosphatase (38-126) U/L Troponin I 0.020 (0.000-0.034) ng/mL Serum Total Protein (6.3-8.2) g/dL Albumin (3.5-5.0) g/dL Urine Color (YELLOW) Urine Appearance (CLEAR) Urine pH (5-6) Ur Specific Leopold (1.005-1.025) Urine Protein (Negative) Urine Ketones (NEGATIVE) Urine Blood (0-5) Jose Luis/ul Urine Nitrite (NEGATIVE) Urine Bilirubin (NEGATIVE) Urine Urobilinogen (0-1) mg/dL Ur Leukocyte Esterase (NEGATIVE) Urine WBC (Auto) (0-5) /HPF Urine RBC (Auto) (0-2) /HPF U Epithel Cells (Auto) (FEW) /HPF Urine Bacteria (Auto) (NEGATIVE) /HPF Urine Mucus (Auto) (NEGATIVE) /HPF Urine Culture Reflexed (NO) Urine Glucose (NEGATIVE) mg/dL SARS-CoV-2 (PCR) (NEGATIVE) - Radiology Impressions Radiology Exams & Impressions: Radiology Procedures Category Date Time Status CHEST 1 VIEW (PORTABLE) Stat Exams 03/26/21 04:[address] ANGIOGRAPHY NECK [CT] Stat Exams 03/26/21 06:56 Completed CTA HEAD W AND/OR WO CONTRAST [CT] Stat Exams 03/26/21 06:56 Completed HEAD WITHOUT CONTRAST [CT] Stat Exams 03/26/21 03:37 Completed - Other Procedures and Tests Respiratory Therapy 03/26/21 11:22 Respiratory Therapy Assessment DAILY
[2021-03-26] MEDS ORDERED: Sodium Chloride 0.9% 250 ML 250 ML IV SCH (17:45)
--- NOTE | 2021-03-26 18:48 | XRAY ---
Indication: Abdomen pain and diarrhea. Multiple contiguous axial images obtained through the abdomen and pelvis without contrast as ordered. Comparison: May 31, 2019. Lung bases demonstrates minimal subsegmental atelectasis/scarring. No infiltrate or effusion. Heart not enlarged. Stomach is now distended with food/fluid. Noncontrasted stomach and bowel loops remain nonobstructed. There is now mild diffuse scattered colonic fecal debris. Stable sigmoid diverticulosis, appendectomy, cholecystectomy, and hysterectomy. No free fluid/air. Residual contrast in both system and urinary bladder from CTA head/neck performed earlier in the day. Grossly stable small left adrenal adenoma and bilateral renal cysts. There remains scattered arteriosclerotic calcifications with stable 3.5 cm distal AAA and aortobiiliac stent graft. Again lack of IV contrast precludes further characterization. Osseous structures remain intact again with osteopenia, degenerative changes throughout the thoracolumbar spine, and mild double curvature scoliosis. Impression: 1. New mild fecal stasis. 2. Stable sigmoid diverticulosis, left adrenal adenoma, bilateral renal cysts, chronic bony findings, and AAA with aortobiiliac stent graft. 3. Remaining CT abdomen/pelvis without contrast exam is negative.
[2021-03-27 06:28] LABS: Absolute Neutrophil Ct (ANC) 4.25 (1.4-6.9); BASOPHIL % 0.2 % (0.0-0.4); Basophil (Absolute #) 0.01 (0-0.4); Eosinophil (Absolute #) 0 (0-0.5); Hematocrit 38.7 % (35-47); Hemoglobin 12.1 gm/dl (12.0-16.0); Lymphocyte (Absolute #) 0.58 (1.0-4.6); Lymphocytes % 11.8 % (24.0-44.0); Mean Cell Volume 90.6 fl (78-100); Mean Corpuscular Hemoglobin 28.3 pg (26-32); Mean Corpuscular Hgb Concent. 31.3 g/dl (32-36); Mean Platelet Volume 10.7 fl (7.5-11.0); Monocyte (Absolute #) 0.06 (0.0-1.3); Monocytes % 1.2 % (0.0-12.0); Neutrophil % 86.8 % (36.0-66.0); Platelet Count 252 K/mm3 (150-450); Red Blood Count 4.27 M/mm3 (4.1-5.4); Red Cell Distribution Width 14.8 % (11.5-14.0); White Blood Count 4.9 K/mm3 (4.0-10.5)
[2021-03-27 06:41] LABS: ALBUMIN 3.7 g/dL (3.5-5.0); ALKALINE PHOSPHATASE 72 U/L (38-126); ANION GAP 10.8 MEQ/L (5-15); BLOOD UREA NITROGEN 15 mg/dL (7-17); CHLORIDE 106 mmol/L (98-107); Calcium 9.9 mg/dL (8.4-10.2); Carbon Dioxide 26 mmol/L (22-30); Creatinine 1 0.81 mg/dL (0.52-1.04); EST GLOMERULAR FILTRATION RATE > 60.0 ML/MIN; Glucose 155 mg/dL (74-106); Potassium 3.4 mmol/L (3.5-5.1); SGOT/AST 19 U/L (14-36); SGPT/ALT 8 U/L (0-35); SODIUM 139 mmol/L (137-145); Total Protein 6.6 g/dL (6.3-8.2)
[2021-03-27] MEDS: Protonix 40MG Tablet PO SCH (09:04)
[2021-03-27] MEDS: Cymbalta 30 MG Capsule PO SCH (09:04)
[2021-03-27] MEDS: ENTRESTO 49 MG-51 MG TABLET PO SCH ×2 (09:04→21:21)
[2021-03-27] MEDS: XANAX 1 MG PO SCH ×3 (09:04→21:21)
[2021-03-27] MEDS: CLARITIN 10 MG PO SCH (09:04)
[2021-03-27] MEDS ORDERED: ZOCOR 20MG PO SCH (10:00)
[2021-03-27] MEDS ORDERED: ROCEPHIN 1 Gm-D5w 50 ml Bag** 1 G/50 ML IVPB IV SCH (10:00)
[2021-03-27] MEDS ORDERED: NON-FORMULARY ITEM (Rosuvastatin Calcium [Rosuvastatin Calcium] 20 MG) PO SCH (10:00)
[2021-03-27] MEDS ORDERED: HYDROCHLOROTHIAZIDE PO SCH ×2 (10:00)
[2021-03-27] MEDS ORDERED: NON-FORMULARY ITEM (Lansoprazole [Prevacid] 30 MG) PO SCH (10:00)
[2021-03-27] MEDS ORDERED: IRBESARTAN PO SCH ×2 (10:00)
--- NOTE | 2021-03-27 10:08 | PCM.NOTE ---
Date and Time: 03/27/21 1000 Subjective Assessment: Patient is feeling much better today. Patient denies any headache nausea vomiting abdominal pain. Patient CT head CT angiogram of the head all were reported unremarkable except for around 40 to 50% stenosis in right internal carotid artery. - Review of Systems Constitutional: No Fever, No Chills Eyes: No Symptoms Ears, Nose, & Throat: No Symptoms Respiratory: No Cough, No Short Of Breath Cardiac: No Chest Pain, No Edema, No Syncope Abdominal/Gastrointestinal: No Abdominal Pain, No Nausea, No Vomiting, No Diarrhea Genitourinary Symptoms: No Dysuria Musculoskeletal: No Back Pain, No Neck Pain Skin: No Rash Neurological: No Dizziness, No Focal Weakness, No Sensory Changes Psychological: No Symptoms Endocrine: No Symptoms Hematologic/Lymphatic: No Symptoms Immunological/Allergic: No Symptoms Objective Exam General Appearance: no apparent distress, alert Neurologic Exam: alert, 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, cooperative, normal mood/affect, nml cerebellar function, sensation nml, No motor deficits Skin Exam: normal color, warm, dry Eye Exam: PERRL, EOMI, eyes nml inspection Ears, Nose, Throat Exam: normal ENT inspection, pharynx normal, moist mucous membranes Neck Exam: normal inspection, non-tender, supple, full range of motion Respiratory Exam: normal breath sounds, lungs clear, No respiratory distress Cardiovascular Exam: regular rate/rhythm, normal heart sounds Gastrointestinal/Abdomen Exam: soft, No tenderness, No mass Extremity Exam: normal inspection, normal range of motion Back Exam: normal inspection, normal range of motion, No CVA tenderness, No vertebral tenderness Pelvic Exam: deferred Rectal Exam: deferred OBJECTIVE DATA Vital Signs: Vital Signs - 24 hr Temp Pulse Resp BP Pulse Ox 03/27/21 08:00 98.2 F 66 18 181/79 92 L 03/27/21 04:00 98.2 F 66 20 177/73 94 L 03/27/21 00:20 98.9 F 68 20 183/78 95 03/26/21 20:37 99.4 F 63 20 188/78 93 L 03/26/21 16:00 98.4 F 50 L 16 147/64 92 L 03/26/21 14:20 165/72 03/26/21 12:00 98.7 F 48 L 12 197/80 95 03/26/21 11:22 48 L 16 95 Pain Assessment - Last Documented Pain Intensity 0 Pain Scale Used 0-10 Pain Scale Intake and Output: Intake & Output 03/24/21 03/25/21 03/26/21 03/27/21 11:59 11:59 11:59 11:59 Intake Total 840 Output Total 100 200 Balance -100 640 Weight 70.4 kg Lab Results: Lab Results-Last 24 Hours 03/26/21 03/26/21 03/26/21 Range/Units 09:45 09:45 12:45 WBC (4.0-10.5) K/mm3 RBC (4.1-5.4) M/mm3 Hgb (12.0-16.0) gm/dl Hct (35-47) % MCV (78-100) fl MCH (26-32) pg MCHC (32-36) g/dl RDW (11.5-14.0) % Plt Count (150-450) K/mm3 MPV (7.5-11.0) fl Gran % (36.0-66.0) % Eos # (Auto) (0-0.5) Absolute Lymphs (auto) (1.0-4.6) Absolute Monos (auto) (0.0-1.3) Lymphocytes % (24.0-44.0) % Monocytes % (0.0-12.0) % Eosinophils % (0.00-5.0) % Basophils % (0.0-0.4) % Absolute Granulocytes (1.4-6.9) Basophils # (0-0.4) Sodium (137-145) mmol/L Potassium (3.5-5.1) mmol/L Chloride (98-107) mmol/L Carbon Dioxide (22-30) mmol/L Anion Gap (5-15) MEQ/L BUN (7-17) mg/dL Creatinine (0.52-1.04) mg/dL Estimated GFR ML/MIN Glucose (74-106) mg/dL Calcium (8.4-10.2) mg/dL Total Bilirubin (0.2-1.3) mg/dL AST (14-36) U/L ALT (0-35) U/L Alkaline Phosphatase (38-126) U/L Troponin I 0.022 0.020 (0.000-0.034) ng/mL C-Reactive Prot, Quant 3 (0-10) mg/L Serum Total Protein (6.3-8.2) g/dL Albumin (3.5-5.0) g/dL 03/26/21 03/27/21 03/27/21 Range/Units 15:50 06:20 06:20 WBC 4.9 (4.0-10.5) K/mm3 RBC 4.27 (4.1-5.4) M/mm3 Hgb 12.1 (12.0-16.0) gm/dl Hct 38.7 (35-47) % MCV 90.6 (78-100) fl MCH 28.3 (26-32) pg MCHC 31.3 L (32-36) g/dl RDW 14.8 H (11.5-14.0) % Plt Count 252 (150-450) K/mm3 MPV 10.7 (7.5-11.0) fl Gran % 86.8 H (36.0-66.0) % Eos # (Auto) 0 (0-0.5) Absolute Lymphs (auto) 0.58 L (1.0-4.6) Absolute Monos (auto) 0.06 (0.0-1.3) Lymphocytes % 11.8 L (24.0-44.0) % Monocytes % 1.2 (0.0-12.0) % Eosinophils % 0.0 (0.00-5.0) % Basophils % 0.2 (0.0-0.4) % Absolute Granulocytes 4.25 (1.4-6.9) Basophils # 0.01 (0-0.4) Sodium 139 (137-145) mmol/L Potassium 3.4 L (3.5-5.1) mmol/L Chloride 106 (98-107) mmol/L Carbon Dioxide 26 (22-30) mmol/L Anion Gap 10.8 (5-15) MEQ/L BUN 15 (7-17) mg/dL Creatinine 0.81 (0.52-1.04) mg/dL Estimated GFR > 60.0 ML/MIN Glucose 155 H (74-106) mg/dL Calcium 9.9 (8.4-10.2) mg/dL Total Bilirubin 0.40 (0.2-1.3) mg/dL AST 19 (14-36) U/L ALT 8 (0-35) U/L Alkaline Phosphatase 72 (38-126) U/L Troponin I 0.018 (0.000-0.034) ng/mL C-Reactive Prot, Quant (0-10) mg/L Serum Total Protein 6.6 (6.3-8.2) g/dL Albumin 3.7 (3.5-5.0) g/dL Radiology Exams: Radiology Procedures Category Date Time Status ABDOMEN AND PELVIS W/0 CONTRAS [CT] Routine Exams 03/26/21 17:56 Completed CHEST 1 VIEW (PORTABLE) Stat Exams 03/26/21 04:[address] ANGIOGRAPHY NECK [CT] Stat Exams 03/26/21 06:56 Completed CTA HEAD W AND/OR WO CONTRAST [CT] Stat Exams 03/26/21 06:56 Completed HEAD WITHOUT CONTRAST [CT] Stat Exams 03/26/21 03:37 Completed Assessment/Plan (1) Urinary tract infection Current Visit: Yes Status: Acute Qualifiers: Urinary tract infection type: site unspecified Hematuria presence: without hematuria Qualified Code(s): N39.0 - Urinary tract infection, site not specified Assessment & Plan: Chief Complaint Diagnosis Urinary Tract Infection Allergies Allergy/AdvReac Type Severity Reaction Status Date / Time Sulfa (Sulfonamide Allergy Mild Verified 03/26/21 03:47 Antibiotics) adhesive tape AdvReac Mild Rash Verified 03/26/21 03:47 Vital Signs (Last 24 hours) Temp Pulse Resp BP Pulse Ox 03/27/21 08:00 98.2 F 66 18 181/79 92 L 03/27/21 04:00 98.2 F 66 20 177/73 94 L 03/27/21 00:20 98.9 F 68 20 183/78 95 03/26/21 20:37 99.4 F 63 20 188/78 93 L 03/26/21 16:00 98.4 F 50 L 16 147/64 92 L 03/26/21 14:20 165/72 03/26/21 12:00 98.7 F 48 L 12 197/80 95 03/26/21 11:22 48 L 16 95 Home Medications Medication Instructions Recorded Confirmed Last Taken Type Rosuvastatin Calcium 20 mg PO DAILY 03/26/21 03/26/21 03/23/21 History Sacubitril/Valsartan [Entresto 49 1 each PO BID 03/26/21 03/26/21 03/25/21 History mg-51 mg Tablet] Morning Dose Current Medications Generic Name Dose Route Start Last Admin Trade Name Freq PRN Reason Stop Dose Admin Acetaminophen 650 mg 03/26/21 09:52 Tylenol 325 Mg PO 04/25/21 09:51 Q4H PRN PRN PAIN AND/OR FEVER Alprazolam 1 mg 03/26/21 11:30 03/27/21 09:04 Xanax 1 Mg PO 04/25/21 11:29 1 mg TID NAUN Administration Amlodipine Besylate 2.5 mg 03/27/21 22:00 Norvasc 5 Mg PO 04/26/21 21:59 HS NAUN Irbesartan 150 mg/ 0 mg 03/27/21 10:00 Hydrochlorothiazide 12.5 mg PO 04/26/21 09:59 DAILY NAUN Duloxetine HCl 60 mg 03/26/21 12:00 03/27/21 09:04 Cymbalta 30 Mg Capsule PO 04/25/21 11:59 60 mg DAILY NAUN Administration Ceftriaxone Sodium/Dextrose 1 g in 50 mls @ 100 mls/hr 03/27/21 10:00 03/27/21 09:06 Rocephin 1 Gm-D5w 50 Ml Bag IV 03/30/21 09:59 100 mls/hr Q24H10 NAUN Administration Loratadine 10 mg 03/26/21 12:00 03/27/21 09:04 Claritin 10 Mg PO 04/25/21 11:59 10 mg DAILY NAUN Administration Metoprolol Succinate 50 mg 03/26/21 12:00 03/26/21 13:40 Toprol Xl 50 Mg PO 04/25/21 11:59 Not Given DAILY NAUN Ondansetron HCl 4 mg 03/26/21 09:52 Zofran 4 Mg/2 Ml Vial IV 04/25/21 09:51 Q6H PRN PRN NAUSEA/VOMITING Pantoprazole Sodium 40 mg 03/26/21 12:00 03/27/21 09:04 Protonix 40mg Tablet PO 04/25/21 11:59 40 mg DAILY NAUN Administration Sacubitril/Valsartan 1 tablet 03/26/21 12:00 03/27/21 09:04 Entresto 49 Mg-51 Mg Tablet PO 04/25/21 11:59 1 tablet BID NAUN Administration Simvastatin 40 mg 03/27/21 10:00 03/27/21 09:04 Zocor 20mg PO 04/26/21 09:59 40 mg DAILY NAUN Administration Discontinued Medications Generic Name Dose Route Start Last Admin Trade Name Freq PRN Reason Stop Dose Admin Albuterol/Ipratropium 3 ml 03/26/21 09:52 Duoneb 0.5-3 Mg/3 Ml Neb IH 04/25/21 09:51 Q4HPRN PRN SHORTNESS OF BREATH/WHEEZING Gabapentin 600 mg 03/26/21 15:00 Neurontin 300 Mg PO 04/25/21 14:59 TID NAUN Ceftriaxone Sodium/Dextrose 2 g in 50 mls @ 100 mls/hr 03/26/21 05:23 03/26/21 05:59 Rocephin 2 Gm-D5w 50ml Bag IV 03/26/21 05:52 Infused STAT STA Infusion Ceftriaxone Sodium/Dextrose Confirm 03/26/21 05:25 Rocephin 2 Gm-D5w 50ml Bag Administered 03/26/21 05:26 Dose 2 g in 50 mls @ ud IV .STK-MED ONE Ceftriaxone Sodium/Dextrose 1 g in 50 mls @ 100 mls/hr 03/26/21 10:00 Rocephin 1 Gm-D5w 50 Ml Bag IV 03/29/21 09:59 Q24H10 NAUN Sodium Chloride 250 mls @ 250 mls/hr 03/26/21 17:45 03/26/21 18:45 Sodium Chloride 0.9% 250 Ml IV 03/26/21 18:44 250 mls/hr .Q1H NAUN Administration Metoclopramide HCl 5 mg 03/26/21 04:07 03/26/21 04:35 Reglan 10 Mg/2 Ml IV 03/26/21 04:08 5 mg STAT ONE Administration Metoclopramide HCl Confirm 03/26/21 04:29 Reglan 10 Mg/2 Ml Administered 03/26/21 04:30 Dose 10 mg .ROUTE .STK-MED ONE Morphine Sulfate 2 mg 03/26/21 04:07 03/26/21 04:47 Morphine Sulfate 2 Mg Inj IV 03/26/21 04:08 2 mg STAT ONE Administration Morphine Sulfate Confirm 03/26/21 04:29 Morphine Sulfate 2 Mg Inj Administered 03/26/21 04:30 Dose 2 mg .ROUTE .STK-MED ONE Pantoprazole Sodium 40 mg 03/26/21 11:00 03/26/21 12:26 Protonix 40 Mg Iv IV 04/25/21 10:59 Not Given Q24H10 NAUN Intake & Output (Last 24 hours) 03/24/21 03/25/21 03/26/21 03/27/21 11:59 11:59 11:59 11:59 Intake Total 840 Output Total 100 200 Balance -100 640 Weight 70.4 kg Microbiology Results (Last 24 hours) 03/26/21 04:04 Urine, Void Urine Culture - Preliminary GRAM NEGATIVE ID AND SENSITIVITY PENDING Laboratory Results (Last 24 hours) 03/27/21 03/27/21 03/26/21 06:20 06:20 15:50 WBC 4.9 RBC 4.27 Hgb 12.1 Hct 38.7 MCV 90.6 MCH 28.3 MCHC 31.3 L RDW 14.8 H Plt Count 252 MPV 10.7 Gran % 86.8 H Eos # (Auto) 0 Absolute Lymphs (auto) 0.58 L Absolute Monos (auto) 0.06 Lymphocytes % 11.8 L Monocytes % 1.2 Eosinophils % 0.0 Basophils % 0.2 Absolute Granulocytes 4.25 Basophils # 0.01 Sodium 139 Potassium 3.4 L Chloride 106 Carbon Dioxide 26 Anion Gap 10.8 BUN 15 Creatinine 0.81 Estimated GFR > 60.0 Glucose 155 H Calcium 9.9 Total Bilirubin 0.40 AST 19 ALT 8 Alkaline Phosphatase 72 Troponin I 0.018 C-Reactive Prot, Quant Serum Total Protein 6.6 Albumin 3.7 03/26/21 03/26/21 03/26/21 12:45 09:45 09:45 WBC RBC Hgb Hct MCV MCH MCHC RDW Plt Count MPV Gran % Eos # (Auto) Absolute Lymphs (auto) Absolute Monos (auto) Lymphocytes % Monocytes % Eosinophils % Basophils % Absolute Granulocytes Basophils # Sodium Potassium Chloride Carbon Dioxide Anion Gap BUN Creatinine Estimated GFR Glucose Calcium Total Bilirubin AST ALT Alkaline Phosphatase Troponin I 0.020 0.022 C-Reactive Prot, Quant 3 Serum Total Protein Albumin Orders (Last 24 hours) Category Date Time Status Bedrest ROUTINE Activity 03/26/21 09:52 Active Up With Assistance ROUTINE Activity 03/26/21 09:52 Active Code Status Order ROUTINE Care 03/26/21 09:52 Active Fall Protocol Q1H Care 03/26/21 09:52 Active IV Care Q6H Care 03/26/21 09:52 Active Neuro Checks Q2H Care 03/26/21 09:[address] in Observation ROUTINE Care 03/26/21 09:52 Active Miguel Herrera, Apply ROUTINE Care 03/26/21 09:52 Active Telemetry q6h Care 03/26/21 09:54 Active Weight,Daily 0600 Care 03/26/21 09:52 Active Consult Cardiology ROUTINE Cons 03/26/21 13:37 Completed House Regular Diet Diet 03/26/21 Lunch Active ABDOMEN AND PELVIS W/0 CONTRAS [CT] Routine Exams 03/26/21 17:56 Completed C-Reative Protein, Quant Stat Lab 03/26/21 09:45 Completed CBC W DIFF AM.LAB Lab 03/27/21 06:20 Completed CMP AM.LAB Lab 03/27/21 06:20 Completed TROPONIN Q3H Lab 03/26/21 09:45 Completed TROPONIN Q3H Lab 03/26/21 12:45 Completed TROPONIN Q3H Lab 03/26/21 15:50 Completed ALPRAZolam 1 MG [Xanax 1 mg] Med 03/26/21 11:30 Active 1 mg PO TID Acetaminophen 325 mg [Tylenol 325 mg] Med 03/26/21 09:52 Active 650 mg PO Q4H PRN PRN Albuterol/Ipratropium 3ml Neb* [DUONEB 0.5-3 MG/3 ml Med 03/26/21 09:52 Discontinued Neb] 3 ml IH Q4HPRN PRN Amlodipine Besylate 5 mg [Norvasc 5 mg] Med 03/27/21 22:00 Active 2.5 mg PO HS Ceftriaxone 1 GM/50 ML PREMIX* [ROCEPHIN 1 Gm-D5w 50 ml Med 03/26/21 10:00 Discontinued Bag] 1 g in 50 ml IV Q24H10 Ceftriaxone 1 GM/50 ML PREMIX* [ROCEPHIN 1 Gm-D5w 50 ml Med 03/27/21 10:00 Active Bag] 1 g in 50 ml IV Q24H10 Duloxetine HCl 30 mg [Cymbalta 30 MG Capsule] Med 03/26/21 12:00 Active 60 mg PO DAILY Gabapentin 300 mg [Neurontin 300 mg] Med 03/26/21 15:00 Discontinued 600 mg PO TID Irbesartan 150 mg [Avapro 150 MG] 150 mg Med 03/27/21 10:00 Active Hydrochlorothiazide 25 mg [hydroDIURIL 25 MG] 12. 5 mg PO DAILY Loratadine 10 mg [Claritin 10 mg] Med 03/26/21 12:00 Active 10 mg PO DAILY Metoprolol Succinate 50 mg [Toprol Xl 50 MG] Med 03/26/21 12:00 Hold 50 mg PO DAILY NaCl 0.9% 250 ml [Sodium Chloride 0.9% 250 ML] 250 ml Med 03/26/21 17:45 Discontinued IV 250 mls/hr Ondansetron HCl 4 mg/2 ml [Zofran 4 MG/2 ML VIAL] Med 03/26/21 09:52 Active 4 mg IV Q6H PRN PRN PANTOPRAZOLE 40 mg Tablet [Protonix 40MG Tablet] Med 03/26/21 12:00 Active 40 mg PO DAILY Pantoprazole 40 mg [Protonix 40 mg IV] Med 03/26/21 11:00 Discontinued 40 mg IV Q24H10 Sacubitril/Valsartan [Entresto 49 mg-51 mg Tablet] Med 03/26/21 12:00 Active 1 tablet PO BID Simvastatin 20Mg [Zocor 20Mg] Med 03/27/21 10:00 Active 40 mg PO DAILY Pulse Oximetry .spot check RT 03/26/21 11:22 Active Respiratory Therapy Assessment DAILY RT 03/26/21 11:22 Active Code(s): N39.0 - URINARY TRACT INFECTION, SITE NOT SPECIFIED (2) Stroke-like symptoms Current Visit: Yes Status: Resolved Code(s): R29.90 - UNSPECIFIED SYMPTOMS AND SIGNS INVOLVING THE NERVOUS SYSTEM (3) Acute kidney injury (nontraumatic) Current Visit: No Status: Acute Code(s): N17.9 - ACUTE KIDNEY FAILURE, UNSPECIFIED (4) Weakness Current Visit: Yes Status: Resolved Code(s): R53.1 - WEAKNESS
[2021-03-27 10:21] LABS: Slide Review 1 YES
[2021-03-27] MEDS ORDERED: Catapres 0.1 MG PO PRN (17:08)
[2021-03-27] MEDS ORDERED: NORVASC 5 MG PO SCH (22:00)
--- NOTE | 2021-03-28 05:14 | PCM.NOTE ---
Date and Time: 03/28/21512 Subjective Assessment: doing better - Review of Systems Constitutional: No Fever, No Chills Eyes: No Symptoms Ears, Nose, & Throat: No Symptoms Respiratory: No Cough, No Short Of Breath Cardiac: No Chest Pain, No Edema, No Syncope Abdominal/Gastrointestinal: No Abdominal Pain, No Nausea, No Vomiting, No Diarrhea Genitourinary Symptoms: No Dysuria Musculoskeletal: No Back Pain, No Neck Pain Skin: No Rash Neurological: No Dizziness, No Focal Weakness, No Sensory Changes Psychological: No Symptoms Endocrine: No Symptoms Hematologic/Lymphatic: No Symptoms Immunological/Allergic: No Symptoms Objective Exam General Appearance: no apparent distress, alert Neurologic Exam: alert, 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, cooperative, normal mood/affect, nml cerebellar function, sensation nml, No motor deficits Skin Exam: normal color, warm, dry Eye Exam: PERRL, EOMI, eyes nml inspection Ears, Nose, Throat Exam: normal ENT inspection, pharynx normal, moist mucous membranes Neck Exam: normal inspection, non-tender, supple, full range of motion Respiratory Exam: normal breath sounds, lungs clear, No respiratory distress Cardiovascular Exam: regular rate/rhythm, normal heart sounds Gastrointestinal/Abdomen Exam: soft, No tenderness, No mass Extremity Exam: normal inspection, normal range of motion Back Exam: normal inspection, normal range of motion, No CVA tenderness, No vertebral tenderness Pelvic Exam: deferred Rectal Exam: deferred OBJECTIVE DATA Vital Signs: Vital Signs - 24 hr Temp Pulse Resp BP Pulse Ox 03/28/21 04:10 97.5 F 57 L 16 136/62 93 L 03/28/21 00:38 98.0 F 65 20 196/81 93 L 03/27/21 21:48 56 L 20 176/71 95 03/27/21 19:37 98.1 F 69 20 214/131 96 03/27/21 16:00 97.1 F 61 17 197/83 94 L 03/27/21 12:00 98.8 F 65 16 194/77 93 L 03/27/21 08:00 98.2 F 66 18 181/79 92 L Pain Assessment - Last Documented Pain Intensity 0 Pain Scale Used 0-10 Pain Scale Intake and Output: Intake & Output 03/25/21 03/26/21 03/27/21 03/28/21 11:59 11:59 11:59 11:59 Intake Total 840 1280 Output Total 100 200 500 Balance -100 640 780 Weight 70.4 kg 75.5 kg Lab Results: Lab Results-Last 24 Hours 03/26/21 03/27/21 03/27/21 Range/Units 09:45 06:20 06:20 WBC 4.9 (4.0-10.5) K/mm3 RBC 4.27 (4.1-5.4) M/mm3 Hgb 12.1 (12.0-16.0) gm/dl Hct 38.7 (35-47) % MCV 90.6 (78-100) fl MCH 28.3 (26-32) pg MCHC 31.3 L (32-36) g/dl RDW 14.8 H (11.5-14.0) % Plt Count 252 (150-450) K/mm3 MPV 10.7 (7.5-11.0) fl Gran % 86.8 H (36.0-66.0) % Eos # (Auto) 0 (0-0.5) Absolute Lymphs (auto) 0.58 L (1.0-4.6) Absolute Monos (auto) 0.06 (0.0-1.3) Lymphocytes % 11.8 L (24.0-44.0) % Monocytes % 1.2 (0.0-12.0) % Eosinophils % 0.0 (0.00-5.0) % Basophils % 0.2 (0.0-0.4) % Absolute Granulocytes 4.25 (1.4-6.9) Basophils # 0.01 (0-0.4) Sodium 139 (137-145) mmol/L Potassium 3.4 L (3.5-5.1) mmol/L Chloride 106 (98-107) mmol/L Carbon Dioxide 26 (22-30) mmol/L Anion Gap 10.8 (5-15) MEQ/L BUN 15 (7-17) mg/dL Creatinine 0.81 (0.52-1.04) mg/dL Estimated GFR > 60.0 ML/MIN Glucose 155 H (74-106) mg/dL Calcium 9.9 (8.4-10.2) mg/dL Total Bilirubin 0.40 (0.2-1.3) mg/dL AST 19 (14-36) U/L ALT 8 (0-35) U/L Alkaline Phosphatase 72 (38-126) U/L C-Reactive Prot, Quant 3 (0-10) mg/L Serum Total Protein 6.6 (6.3-8.2) g/dL Albumin 3.7 (3.5-5.0) g/dL Slides for Path Review YES Radiology Exams: Radiology Procedures Category Date Time Status ABDOMEN AND PELVIS W/0 CONTRAS [CT] Routine Exams 03/26/21 17:[address] ANGIOGRAPHY NECK [CT] Stat Exams 03/26/21 06:56 Completed CTA HEAD W AND/OR WO CONTRAST [CT] Stat Exams 03/26/21 06:56 Completed Assessment/Plan (1) Urinary tract infection Current Visit: Yes Status: Acute Qualifiers: Urinary tract infection type: site unspecified Hematuria presence: without hematuria Qualified Code(s): N39.0 - Urinary tract infection, site not specified Assessment & Plan: Last Vital Signs Temp 97.5 F 03/28/21 04:10 Pulse 57 L 03/28/21 04:10 Resp 16 03/28/21 04:10 BP 136/62 03/28/21 04:10 Pulse Ox 93 L 03/28/21 04:10 Allergies Sulfa (Sulfonamide Antibiotics) Allergy (Mild, Verified 03/26/21 03:47) states could not sleep adhesive tape Adverse Reaction (Mild, Verified 03/26/21 03:47) Rash Active Medications Acetaminophen (Tylenol 325 Mg) 650 mg PO Q4H PRN PRN PRN Reason: PAIN AND/OR FEVER Stop: 04/25/21 09:51 Alprazolam (Xanax 1 Mg) 1 mg PO TID NAUN Stop: 04/25/21 11:29 Last Admin: 03/27/21 21:21 Dose: 1 mg Documented by: Amlodipine Besylate (Norvasc 5 Mg) 2.5 mg PO HS NAUN Stop: 04/26/21 21:59 Last Admin: 03/27/21 21:21 Dose: 2.5 mg Documented by: Clonidine (Catapres 0.1 Mg) 0.1 mg PO Q6H PRN PRN PRN Reason: HYPERTENSION Stop: 04/26/21 17:07 Last Admin: 03/27/21 19:26 Dose: 0.1 mg Documented by: Irbesartan 150 mg/ (Hydrochlorothiazide 12.5 mg) 0 mg PO DAILY [facility] Stop: 04/26/21 09:59 Last Admin: 03/27/21 10:19 Dose: 150 mg Documented by: Duloxetine HCl (Cymbalta 30 Mg Capsule) 60 mg PO DAILY [facility] Stop: 04/25/21 11:59 Last Admin: 03/27/21 09:04 Dose: 60 mg Documented by: Ceftriaxone Sodium/Dextrose (Rocephin 1 Gm-D5w 50 Ml Bag) 1 g in 50 mls @ 100 mls/hr IV Q24H10 NAUN Stop: 03/30/21 09:59 Last Admin: 03/27/21 09:06 Dose: 100 mls/hr Documented by: Loratadine (Claritin 10 Mg) 10 mg PO DAILY [facility] Stop: 04/25/21 11:59 Last Admin: 03/27/21 09:04 Dose: 10 mg Documented by: Metoprolol Succinate (Toprol Xl 50 Mg) 50 mg PO DAILY [facility] Stop: 04/25/21 11:59 Last Admin: 03/26/21 13:40 Dose: Not Given Documented by: Ondansetron HCl (Zofran 4 Mg/2 Ml Vial) 4 mg IV Q6H PRN PRN PRN Reason: NAUSEA/VOMITING Stop: 04/25/21 09:51 Pantoprazole Sodium (Protonix 40mg Tablet) 40 mg PO DAILY [facility] Stop: 04/25/21 11:59 Last Admin: 03/27/21 09:04 Dose: 40 mg Documented by: Sacubitril/Valsartan (Entresto 49 Mg-51 Mg Tablet) 1 tablet PO BID [facility] Stop: 04/25/21 11:59 Last Admin: 03/27/21 21:21 Dose: 1 tablet Documented by: Simvastatin (Zocor 20mg) 40 mg PO DAILY [facility] Stop: 04/26/21 09:59 Last Admin: 03/27/21 09:04 Dose: 40 mg Documented by: Intake & Output 03/27/21 03/28/21 11:59 11:59 Intake Total 840 1280 Output Total 200 500 Balance 640 780 Weight 75.5 kg Orders 03/27/21 10:00 Irbesartan 150 mg [Avapro 150 MG] 150 mg Hydrochlorothiazide 25 mg [hydroDIURIL 25 MG] 12.5 mg PO DAILY 03/27/21 17:08 Clonidine HCl 0.1 mg [Catapres 0.1 MG] 0.1 mg PO Q6H PRN PRN 03/27/21 22:00 Amlodipine Besylate 5 mg [Norvasc 5 mg] 2.5 mg PO HS Lab Tests 03/26/21 03/27/21 03/27/21 09:45 06:20 06:20 WBC 4.9 RBC 4.27 Hgb 12.1 Hct 38.7 MCV 90.6 MCH 28.3 MCHC 31.3 L RDW 14.8 H Plt Count 252 MPV 10.7 Gran % 86.8 H Eos # (Auto) 0 Absolute Lymphs (auto) 0.58 L Absolute Monos (auto) 0.06 Lymphocytes % 11.8 L Monocytes % 1.2 Eosinophils % 0.0 Basophils % 0.2 Absolute Granulocytes 4.25 Basophils # 0.01 Sodium 139 Potassium 3.4 L Chloride 106 Carbon Dioxide 26 Anion Gap 10.8 BUN 15 Creatinine 0.81 Estimated GFR > 60.0 Glucose 155 H Calcium 9.9 Total Bilirubin 0.40 AST 19 ALT 8 Alkaline Phosphatase 72 C-Reactive Prot, Quant 3 Serum Total Protein 6.6 Albumin 3.7 Slides for Path Review YES Microbiology 03/26/21 04:04 Urine, Void Urine Culture - Preliminary GRAM NEGATIVE ID AND SENSITIVITY PENDING Code(s): N39.0 - URINARY TRACT INFECTION, SITE NOT SPECIFIED (2) Stroke-like symptoms Current Visit: Yes Status: Resolved Code(s): R29.90 - UNSPECIFIED SYMPTOMS AND SIGNS INVOLVING THE NERVOUS SYSTEM (3) Acute kidney injury (nontraumatic) Current Visit: No Status: Resolved Code(s): N17.9 - ACUTE KIDNEY FAILURE, UNSPECIFIED (4) Weakness Current Visit: Yes Status: Resolved Code(s): R53.1 - WEAKNESS
--- NOTE | 2021-03-28 06:45 | PCM.DS ---
Discharge Summary Date of Admission: 03/26/21 09:26 Admitting Physician: ISAIAH AVALOS DO Consults: Consults on Case 03/26/21 05:22 Consult Tele-Health [Tele-Health Consult] ROUTINE 03/26/21 13:37 Consult Cardiology ROUTINE Primary Care Provider: ANDRES VELASQUEZ Allergies Allergies Sulfa (Sulfonamide Antibiotics) Allergy (Mild, Verified 03/26/21 03:47) states could not sleep adhesive tape Adverse Reaction (Mild, Verified 03/26/21 03:47) Rash Hospital Summary - Hospital Course Hospital Course: Chief Complaint Diagnosis Urinary Tract Infection Allergies Allergy/AdvReac Type Severity Reaction Status Date / Time Sulfa (Sulfonamide Allergy Mild Verified 03/26/21 03:47 Antibiotics) adhesive tape AdvReac Mild Rash Verified 03/26/21 03:47 Vital Signs (Last 24 hours) Temp Pulse Resp BP Pulse Ox 03/28/21 04:10 97.5 F 57 L 16 136/62 93 L 03/28/21 00:38 98.0 F 65 20 196/81 93 L 03/27/21 21:48 56 L 20 176/71 95 03/27/21 19:37 98.1 F 69 20 214/131 96 03/27/21 16:00 97.1 F 61 17 197/83 94 L 03/27/21 12:00 98.8 F 65 16 194/77 93 L 03/27/21 08:00 98.2 F 66 18 181/79 92 L Home Medications Medication Instructions Recorded Confirmed Last Taken Type Rosuvastatin Calcium 20 mg PO DAILY 03/26/21 03/26/21 03/23/21 History Sacubitril/Valsartan [Entresto 49 1 each PO BID 03/26/21 03/26/21 03/25/21 Histo ry mg-51 mg Tablet] Morning Dose Current Medications Generic Name Dose Route Start Last Admin Trade Name Freq PRN Reason Stop Dose Admin Acetaminophen 650 mg 03/26/21 09:52 Tylenol 325 Mg PO 04/25/21 09:51 Q4H PRN PRN PAIN AND/OR FEVER Alprazolam 1 mg 03/26/21 11:30 03/27/21 21:21 Xanax 1 Mg PO 04/25/21 11:29 1 mg TID NAUN Administration Amlodipine Besylate 2.5 mg 03/27/21 22:00 03/27/21 21:21 Norvasc 5 Mg PO 04/26/21 21:59 2.5 mg HS NAUN Administration Clonidine 0.1 mg 03/27/21 17:08 03/27/21 19:26 Catapres 0.1 Mg PO 04/26/21 17:07 0.1 mg Q6H PRN PRN Administration HYPERTENSION Irbesartan 150 mg/ 0 mg 03/27/21 10:00 03/27/21 10:19 Hydrochlorothiazide 12.5 mg PO 04/26/21 09:59 150 mg DAILY NAUN Administration Duloxetine HCl 60 mg 03/26/21 12:00 03/27/21 09:04 Cymbalta 30 Mg Capsule PO 04/25/21 11:59 60 mg DAILY NAUN Administration Ceftriaxone Sodium/Dextrose 1 g in 50 mls @ 100 mls/hr 03/27/21 10:00 03/27/21 09:06 Rocephin 1 Gm-D5w 50 Ml Bag IV 03/30/21 09:59 100 mls/hr Q24H10 NAUN Administration Loratadine 10 mg 03/26/21 12:00 03/27/21 09:04 Claritin 10 Mg PO 04/25/21 11:59 10 mg DAILY NAUN Administration Metoprolol Succinate 50 mg 03/26/21 12:00 03/26/21 13:40 Toprol Xl 50 Mg PO 04/25/21 11:59 Not Given DAILY NAUN Ondansetron HCl 4 mg 03/26/21 09:52 Zofran 4 Mg/2 Ml Vial IV 04/25/21 09:51 Q6H PRN PRN NAUSEA/VOMITING Pantoprazole Sodium 40 mg 03/26/21 12:00 03/27/21 09:04 Protonix 40mg Tablet PO 04/25/21 11:59 40 mg DAILY NAUN Administration Sacubitril/Valsartan 1 tablet 03/26/21 12:00 03/27/21 21:21 Entresto 49 Mg-51 Mg Tablet PO 04/25/21 11:59 1 tablet BID NAUN Administration Simvastatin 40 mg 03/27/21 10:00 03/27/21 09:04 Zocor 20mg PO 04/26/21 09:59 40 mg DAILY NAUN Administration Discontinued Medications Generic Name Dose Route Start Last Admin Trade Name Freq PRN Reason Stop Dose Admin Albuterol/Ipratropium 3 ml 03/26/21 09:52 Duoneb 0.5-3 Mg/3 Ml Neb IH 04/25/21 09:51 Q4HPRN PRN SHORTNESS OF BREATH/WHEEZING Gabapentin 600 mg 03/26/21 15:00 Neurontin 300 Mg PO 04/25/21 14:59 TID NAUN Ceftriaxone Sodium/Dextrose 2 g in 50 mls @ 100 mls/hr 03/26/21 05:23 03/26/21 05:59 Rocephin 2 Gm-D5w 50ml Bag IV 03/26/21 05:52 Infused STAT STA Infusion Ceftriaxone Sodium/Dextrose Confirm 03/26/21 05:25 Rocephin 2 Gm-D5w 50ml Bag Administered 03/26/21 05:26 Dose 2 g in 50 mls @ ud IV .STK-MED ONE Ceftriaxone Sodium/Dextrose 1 g in 50 mls @ 100 mls/hr 03/26/21 10:00 03/27/21 15:47 Rocephin 1 Gm-D5w 50 Ml Bag IV 03/29/21 09:59 Not Given Q24H10 NAUN Sodium Chloride 250 mls @ 250 mls/hr 03/26/21 17:45 03/26/21 18:45 Sodium Chloride 0.9% 250 Ml IV 03/26/21 18:44 250 mls/hr .Q1H NAUN Administration Metoclopramide HCl 5 mg 03/26/21 04:07 03/26/21 04:35 Reglan 10 Mg/2 Ml IV 03/26/21 04:08 5 mg STAT ONE Administration Metoclopramide HCl Confirm 03/26/21 04:29 Reglan 10 Mg/2 Ml Administered 03/26/21 04:30 Dose 10 mg .ROUTE .STK-MED ONE Morphine Sulfate 2 mg 03/26/21 04:07 03/26/21 04:47 Morphine Sulfate 2 Mg Inj IV 03/26/21 04:08 2 mg STAT ONE Administration Morphine Sulfate Confirm 03/26/21 04:29 Morphine Sulfate 2 Mg Inj Administered 03/26/21 04:30 Dose 2 mg .ROUTE .STK-MED ONE Pantoprazole Sodium 40 mg 03/26/21 11:00 03/26/21 12:26 Protonix 40 Mg Iv IV 04/25/21 10:59 Not Given Q24H10 NAUN Intake & Output (Last 24 hours) 03/25/21 03/26/21 03/27/21 03/28/21 11:59 11:59 11:59 11:59 Intake Total 840 1280 Output Total 100 200 500 Balance -100 640 780 Weight 70.4 kg 75.5 kg Microbiology Results (Last 24 hours) 03/26/21 04:04 Urine, Void Urine Culture - Preliminary GRAM NEGATIVE ID AND SENSITIVITY PENDING Laboratory Results (Last 24 hours) 03/27/21 03/27/21 03/26/21 06:20 06:20 09:45 Sodium 139 Potassium 3.4 L Chloride 106 Carbon Dioxide 26 Anion Gap 10.8 BUN 15 Creatinine 0.81 Estimated GFR > 60.0 Glucose 155 H Calcium 9.9 Total Bilirubin 0.40 AST 19 ALT 8 Alkaline Phosphatase 72 C-Reactive Prot, Quant 3 Serum Total Protein 6.6 Albumin 3.7 Slides for Path Review YES Orders (Last 24 hours) Category Date Time Status CBC W DIFF AM.LAB Lab 03/27/21 06:20 Completed CMP AM.LAB Lab 03/27/21 06:20 Completed Amlodipine Besylate 5 mg [Norvasc 5 mg] Med 03/27/21 22:00 Active 2.5 mg PO HS Ceftriaxone 1 GM/50 ML PREMIX* [ROCEPHIN 1 Gm-D5w 50 ml Med 03/27/21 10:00 Active Bag] 1 g in 50 ml IV Q24H10 Clonidine HCl 0.1 mg [Catapres 0.1 MG] Med 03/27/21 17:08 Ordered 0.1 mg PO Q6H PRN PRN Irbesartan 150 mg [Avapro 150 MG] 150 mg Med 03/27/21 10:00 Active Hydrochlorothiazide 25 mg [hydroDIURIL 25 MG] 12. 5 mg PO DAILY Simvastatin 20Mg [Zocor 20Mg] Med 03/27/21 10:00 Active 40 mg PO DAILY - Vitals & Intake/Output Vital Signs: Vital Signs Temperature 97.5 F 03/28/21 04:10 Pulse Rate 57 L 03/28/21 04:10 Respiratory Rate 16 03/28/21 04:10 Blood Pressure 136/62 03/28/21 04:10 O2 Sat by Pulse Oximetry 93 L 03/28/21 04:10 Intake & Output: Intake & Output 03/25/21 03/26/21 03/27/21 03/28/21 11:59 11:59 11:59 11:59 Intake Total 840 1280 Output Total 100 200 500 Balance -100 640 780 Weight 70.4 kg 75.5 kg - Lab Result Diagrams: 03/27/21 06:20 03/27/21 06:20 Lab Results-Last 24 Hrs: Lab Results-Last 24 Hours 03/26/21 03/27/21 03/27/21 Range/Units 09:45 06:20 06:20 Sodium 139 (137-145) mmol/L Potassium 3.4 L (3.5-5.1) mmol/L Chloride 106 (98-107) mmol/L Carbon Dioxide 26 (22-30) mmol/L Anion Gap 10.8 (5-15) MEQ/L BUN 15 (7-17) mg/dL Creatinine 0.81 (0.52-1.04) mg/dL Estimated GFR > 60.0 ML/MIN Glucose 155 H (74-106) mg/dL Calcium 9.9 (8.4-10.2) mg/dL Total Bilirubin 0.40 (0.2-1.3) mg/dL AST 19 (14-36) U/L ALT 8 (0-35) U/L Alkaline Phosphatase 72 (38-126) U/L C-Reactive Prot, Quant 3 (0-10) mg/L Serum Total Protein 6.6 (6.3-8.2) g/dL Albumin 3.7 (3.5-5.0) g/dL Slides for Path Review YES Micro Results-Entire Visit: Microbiology 03/26/21 04:04 Urine Culture - Preliminary Urine, Void GRAM NEGATIVE ID AND SENSITIVITY PENDING - Radiology Exams Ordered Rad Exams-Entire Visit: Radiology Procedures Category Date Time Status ABDOMEN AND PELVIS W/0 CONTRAS [CT] Routine Exams 03/26/21 17:[address] ANGIOGRAPHY NECK [CT] Stat Exams 03/26/21 06:56 Completed CTA HEAD W AND/OR WO CONTRAST [CT] Stat Exams 03/26/21 06:56 Completed - Procedures and Test Procedures and Tests throughout Hospitalization: Therapy Orders & Screens 03/26/21 11:22 Respiratory Therapy Assessment DAILY Comment: Diagnosis: Urinary Tract Infection Discharge Exam General Appearance: no apparent distress, alert Neurologic Exam: alert, 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, cooperative, normal mood/affect, nml cerebellar function, sensation nml, No motor deficits Eye Exam: PERRL, EOMI, eyes nml inspection Ears, Nose, Throat Exam: normal ENT inspection, pharynx normal, moist mucous membranes Neck Exam: normal inspection, non-tender, supple, full range of motion Respiratory Exam: normal breath sounds, lungs clear, No respiratory distress Cardiovascular Exam: regular rate/rhythm, normal heart sounds Gastrointestinal/Abdomen Exam: soft, No tenderness, No mass Pelvic Exam: deferred Rectal Exam: deferred Back Exam: normal inspection, normal range of motion, No CVA tenderness, No vertebral tenderness Extremity Exam: normal inspection, normal range of motion Skin Exam: normal color, warm, dry Final Diagnosis/Problem List - Final Discharge Diagnosis/Problem (1) Urinary tract infection Current Visit: Yes Status: Acute Assessment & Plan: Medication Report Alprazolam (Xanax 1 Mg) 1 mg PO TID [facility] Stop: 04/25/21 11:29 Last Admin: 03/27/21 21:21 Dose: 1 mg Documented by: YANG Amlodipine Besylate (Norvasc 5 Mg) 2.5 mg PO HS [facility] Stop: 04/26/21 21:59 Last Admin: 03/27/21 21:21 Dose: 2.5 mg Documented by: AJENCER Clonidine (Catapres 0.1 Mg) 0.1 mg PO Q6H PRN PRN PRN Reason: HYPERTENSION Stop: 04/26/21 17:07 Last Admin: 03/27/21 19:26 Dose: 0.1 mg Documented by: YANG Irbesartan 150 mg/ (Hydrochlorothiazide 12.5 mg) 0 mg PO DAILY [facility] Stop: 04/26/21 09:59 Last Admin: 03/27/21 10:19 Dose: 150 mg Documented by: ROMULO Duloxetine HCl (Cymbalta 30 Mg Capsule) 60 mg PO DAILY [facility] Stop: 04/25/21 11:59 Last Admin: 03/27/21 09:04 Dose: 60 mg Documented by: ROMULO Ceftriaxone Sodium/Dextrose (Rocephin 1 Gm-D5w 50 Ml Bag) 1 g in 50 mls @ 100 mls/hr IV Q24H10 NAUN Stop: 03/30/21 09:59 Last Admin: 03/27/21 09:06 Dose: 100 mls/hr Documented by: ROMULO Loratadine (Claritin 10 Mg) 10 mg PO DAILY NAUN Stop: 04/25/21 11:59 Last Admin: 03/27/21 09:04 Dose: 10 mg Documented by: ROMULO Metoprolol Succinate (Toprol Xl 50 Mg) 50 mg PO DAILY NAUN Stop: 04/25/21 11:59 Last Admin: 03/26/21 13:40 Dose: Not Given Documented by: SUJEY Non-Admin Reason: Low Heart Rate Pantoprazole Sodium (Protonix 40mg Tablet) 40 mg PO DAILY NAUN Stop: 04/25/21 11:59 Last Admin: 03/27/21 09:04 Dose: 40 mg Documented by: ROMULO Sacubitril/Valsartan (Entresto 49 Mg-51 Mg Tablet) 1 tablet PO BID NAUN Stop: 04/25/21 11:59 Last Admin: 03/27/21 21:21 Dose: 1 tablet Documented by: YANG Simvastatin (Zocor 20mg) 40 mg PO DAILY NAUN Stop: 04/26/21 09:59 Last Admin: 03/27/21 09:04 Dose: 40 mg Documented by: ROMULO Discontinued Medications Ceftriaxone Sodium/Dextrose (Rocephin 2 Gm-D5w 50ml Bag) 2 g in 50 mls @ 100 mls/hr IV STAT STA Stop: 03/26/21 05:52 Last Infusion: 03/26/21 05:59 Dose: 0 mls/hr, 0 mls/hr Documented by: IZZY Infusion/Titration Document 03/26/21 05:59 ASC (Rec: 03/26/21 05:59 ASC [id number]) Dosing & Rate Titration Dose 0 IV Rate 0 Increase/Decrease Infused Cumulative Dose 2 IV Intake Infusion Intake 50 Cumulative Intake (Bag) 50 Cumulative Intake (Rx) 50 Container Volume 0 Volume Adjustment/Waste 0 Ceftriaxone Sodium/Dextrose (Rocephin 1 Gm-D5w 50 Ml Bag) 1 g in 50 mls @ 100 mls/hr IV Q24H10 NAUN Stop: 03/29/21 09:59 Last Admin: 03/27/21 15:47 Dose: Not Given Documented by: ROMULO Non-Admin Reason: Given on previous shift (Not Documented) Sodium Chloride (Sodium Chloride 0.9% 250 Ml) 250 mls @ 250 mls/hr IV .Q1H NAUN Stop: 03/26/21 18:44 Last Admin: 03/26/21 18:45 Dose: 250 mls/hr Documented by: SUJEY Infusion/Titration Document 03/26/21 18:45 LEANDRA (Rec: 03/26/21 18:45 LEANDRA [id number]) Dosing & Rate IV Rate 250 Increase/Decrease Started Cumulative Dose Not Applicable IV Intake Container Volume 250 Volume Adjustment/Waste 0 Metoclopramide HCl (Reglan 10 Mg/2 Ml) 5 mg IV STAT ONE Stop: 03/26/21 04:08 Last Admin: 03/26/21 04:35 Dose: 5 mg Documented by: [employer] (IV,IVP) Document 03/26/21 04:35 RM (Rec: 03/26/21 04:35 RM [id number]) Type of Administration Initial IV Push Yes Morphine Sulfate (Morphine Sulfate 2 Mg Inj) 2 mg IV STAT ONE Stop: 03/26/21 04:08 Last Admin: 03/26/21 04:47 Dose: 2 mg Documented by: [employer] [facility] [employer] (IV,IVP) Document 03/26/21 04:47 RM (Rec: 03/26/21 04:48 RM [id number]) Type of Administration Initial IV Push No IV Push-Addtl Different Drug Yes MAR PAIN Document 03/26/21 04:47 RM (Rec: 03/26/21 04:48 RM [id number]) Reassesment Pain Site Right Location Head Pain Scale Used 0-10 Pain Scale Pain Intensity (0-10) 2 Pantoprazole Sodium (Protonix 40 Mg Iv) 40 mg IV Q24H10 NAUN Stop: 04/25/21 10:59 Last Admin: 03/26/21 12:26 Dose: Not Given Documented by: SUJEY Non-Admin Reason: Wrong Time Code(s): N39.0 - URINARY TRACT INFECTION, SITE NOT SPECIFIED (2) Stroke-like symptoms Current Visit: Yes Status: Resolved Code(s): R29.90 - UNSPECIFIED SYMPTOMS AND SIGNS INVOLVING THE NERVOUS SYSTEM (3) Acute kidney injury (nontraumatic) Current Visit: No Status: Resolved Code(s): N17.9 - ACUTE KIDNEY FAILURE, UNSPECIFIED (4) Weakness Current Visit: Yes Status: Resolved Code(s): R53.1 - WEAKNESS (5) CHF (congestive heart failure), NYHA class II Current Visit: Yes Status: Chronic Code(s): I50.9 - HEART FAILURE, UNSPECIFIED - Discharge Discharge Date: 03/28/21 Disposition: Home, Self-Care Condition: Stable Prescriptions: New Ciprofloxacin [Cipro 500 MG] 500 mg PO BID #10 tablet Continue Gabapentin [Neurontin] 600 mg PO TID Metoprolol Succinate 50 mg [Toprol Xl 50 MG] 50 mg PO DAILY Lansoprazole [Prevacid] 30 mg PO DAILY Alprazolam [Xanax] 1 mg PO TID Loratadine [Claritin] 10 mg PO DAILY Duloxetine HCl 60 mg PO DAILY Rosuvastatin Calcium 20 mg PO DAILY Sacubitril/Valsartan [Entresto 49 mg-51 mg Tablet] 1 each PO BID Instructions: Generalized Weakness (DC), Urinary Tract Infection, Adult (DC) Follow up with: ANDRES VELASQUEZ [Primary Care Provider] - 5 Days Forms: Discharge Instructions
[2021-03-28 07:12] VITALS: BP 128/58; PULSE 54
[2021-03-28 15:02] VITALS: O2SAT 96
== END 2021-03-28 10:11 | disposition home or self-care (01) ==
LOC: ED 03:18 → MED SURG 09:26
PROVIDERS: ADMIT Family Medicine; ATTEND Family Medicine
DX: N39.0 Urinary tract infection, site not specified (principal); R51.9 Headache, unspecified; N17.9 Acute kidney failure, unspecified; E78.5 Hyperlipidemia, unspecified; F41.9 Anxiety disorder, unspecified; E78.00 Pure hypercholesterolemia, unspecified; R29.90 Unspecified symptoms and signs involving the nervous system; R53.1 Weakness; Z79.899 Other long term (current) drug therapy; Z20.822 Contact with and (suspected) exposure to COVID-19
CPT/HCPCS: 36000; 36415; 70450; 70496; 70498; 71045; 74176; 80053; 81001; 83735; 84484; 85025; 85652; 86140; 87077; 87086; 87186; 93005; 93268; 94760; 96374; 96375; 99285; G0378; Q3014; U0003; J0696; J2270; A9270-GY

== ENCOUNTER 2025-04-26 14:56 | Emergency (ER) | payer MEDICARE ==
--- NOTE | 2025-04-26 15:00 | ERPHSYRPT ---
- History of Present Illness Time Seen by Provider: 04/26/25 15:00 Source: patient, family Exam Limitations: no limitations Physician History: Pt was scratch lifted thin skin avulsion flap on left dorsal hand 2 days ago by her dog which has had all of its shots and was being seen by the vet trimming its nails. She requests a TDAP update due to being several years. No other symptoms or complaints or injuries but was concerned as there is some gap between the wound edges. On exam these are firmly adherent, no drainage, good granulation, no erythema and no tenderness of tissue or underlying bone ( did not get bitten . ) We discussed the risks/benefits of wound revision vs treatment to continue healing by secondary intent and risk of infection with each method and she wishes to go with some Ab coverage for infection and acceptance of scar, rather than revision and suturing at this time - this is also a consideration that canine wounds may be at some increased risk for infection. She and family have the capacity to make this choice. Discussed with pt and available family risks and benefits of any further testing testing/ augmentin and bactroban/ epsom salts Antibiotic , TDAP and they wish to proceed with dressing/AB (but no imaging or suture revision - as discussed above) so these AB dressings are ordered. Timing/Duration: day(s) Severity: moderate Modifying Factors: Improves With: nothing Associated Symptoms: denies symptoms Allergies/Adverse Reactions: Sulfa (Sulfonamide Antibiotics) Allergy (Mild, Verified 04/26/25 15:13) states could not sleep adhesive tape Adverse Reaction (Mild, Verified 04/26/25 15:13) Rash Home Medications: Gabapentin [Neurontin] 600 mg PO TID 10/24/17 [History] Lansoprazole [Prevacid] 30 mg PO DAILY 10/24/17 [History] Metoprolol Succinate 50 mg [Toprol Xl 50 MG] 50 mg PO DAILY 10/24/17 [History] ALPRAZolam [Xanax] 1 mg PO TID 11/06/17 [History] Duloxetine HCl 60 mg PO DAILY 05/31/19 [History] Loratadine [Claritin] 10 mg PO DAILY 05/31/19 [History] Rosuvastatin Calcium 20 mg PO DAILY 03/26/21 [History] Sacubitril/Valsartan [Entresto 49 mg-51 mg Tablet] 1 each PO BID 03/26/21 [History] Hx Tetanus, Diphtheria Vaccination/Date Given: Yes Hx Influenza Vaccination/Date Given: No Hx Pneumococcal Vaccination/Date Given: No Travel Risk - Emerging Infectious Disease Are you exhibiting symptoms associated with any current EIDs: No - Review of Systems Constitutional: No Fever, No Chills Eyes: No Symptoms Ears, Nose, & Throat: No Symptoms Respiratory: No Cough, No Dyspnea Cardiac: No Chest Pain, No Edema, No Syncope Abdominal/Gastrointestinal: No Abdominal Pain, No Nausea, No Vomiting, No Diarrhea Genitourinary Symptoms: No Dysuria Musculoskeletal: No Back Pain, No Neck Pain Skin: Other (wound dorsum left hand), No Rash Neurological: No Dizziness, No Focal Weakness, No Sensory Changes Psychological: No Symptoms Endocrine: No Symptoms Hematologic/Lymphatic: No Symptoms Immunological/Allergic: No Symptoms All Other Systems: Reviewed and Negative - Past Medical History Pertinent Past Medical History: Yes Neurological History: No Pertinent History ENT History: Cataracts Cardiac History: Aneurysm, Congestive Heart Failure, Hypertension Respiratory History: No Pertinent History Endocrine Medical History: No Pertinent History Musculoskeletal History: Arthritis GI Medical History: No Pertinent History History: No Pertinent History Psycho-Social History: Anxiety, Depression Female Reproductive Disorders: Uterine Cancer - Past Surgical History Past Surgical History: Yes Neuro Surgical History: No Pertinent History Cardiac: Cardiac Stent Respiratory: No Pertinent History Gastrointestinal: Appendectomy, Cholecystectomy Genitourinary: No Pertinent History Musculoskeletal: Orthopedic Surgery Female Surgical History: Hysterectomy, Dilation & Curettage Other Surgical History: Right knee Surgery. Lower Back Surgery - Social History Smoking Status: Current every day smoker How long have you smoked: 62 years Exposure to second hand smoke: Yes Drug Use: none - Social Determinants of Health Will the patient participate in the screening: Declined to provide - Physical Exam General Appearance: no apparent distress, alert Eye Exam: PERRL/EOMI, eyes nml inspection Ears, Nose, Throat Exam: normal ENT inspection, TMs normal, pharynx normal, moist mucous membranes Neck Exam: normal inspection, non-tender, supple, full range of motion Respiratory Exam: normal breath sounds, lungs clear, No respiratory distress Cardiovascular Exam: regular rate/rhythm, normal heart sounds, normal peripheral pulses Gastrointestinal/Abdomen Exam: soft, normal bowel sounds, No tenderness, No mass Pelvic Exam: deferred Rectal Exam: deferred Back Exam: normal inspection, normal range of motion, No CVA tenderness, No vertebral tenderness Extremity Exam: normal inspection, normal range of motion, pelvis stable Neurologic Exam: alert, 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, cooperative, normal mood/affect, nml cerebellar function, nml station & gait, sensation nml, No motor deficits Skin Exam: normal color, warm, dry, laceration (left dorsum 4 x 6 cm lac avulsion flap adherent and healing with secondary intent and granulation), No rash Lymphatic Exam: No adenopathy SpO2 Interpretation: normal SpO2: 96 O2 Delivery: Room Air - Course Nursing assessment & vital signs reviewed: Yes - Progress Progress: improved, re-examined Counseled pt/family regarding: diagnosis, need for follow-up Medical Desision Making - Independent Historian Additional History obtained from: Family - Discussion of managment Reviewed:: Need for additional workup Agreed on:: Treatment plan, need for follow-up - Diagnostic Testing Diagnostic test were ordered, analyzed, and reviewed by me: No - Risk of complications The pt has a mod risk of morbidity or mortality based on: Need for prescription drug management - Departure Departure Disposition: Home Clinical Impression: canine flap lac from scratch Condition: Good Critical Care Time: No Referrals: ANDRES VELASQUEZ [Primary Care Provider, [facility]] - Follow up/PCP as directed Instructions: Animal bites - ED discharge instructions, Wound care - ED discharge instructions Additional Instructions: soak in epsom salts twice daily and redress wound with bactroban. Followup with your DrStanislaw early this week for wound check. Observe your dog for any unusual behavior and report this for evaluation immediately. return meantime if drainage, swelling, pain, redness or any other concerns. There is expected to be a scar but this treatment is to reduce the risk for infection. followup your blood pressure with your Dr. Prescriptions: Amox Tr/Potass Clav. 875 mg [Augmentin 875-125 Tablet] 875 mg PO BID 10 Days #20 tablet Mupirocin [Bactroban OINTMENT] 22 gm TP BID #1 cartridge
[2025-04-26 15:26] VITALS: TEMP 97.3
[2025-04-26] MEDS ORDERED: Adacel Vial IM ONE (15:37)
[2025-04-26] MEDS ORDERED: Augmentin 875-125 Tablet ONE (15:37)
[2025-04-26] MEDS: Adacel Vial IM ONE (15:38)
[2025-04-26] MEDS: Augmentin 875-125 Tablet PO ONE (15:40)
[2025-04-26] MEDS ORDERED: BACIGUENT PACKET ONE (15:41)
[2025-04-26 15:59] VITALS: BP 156/74; PULSE 82; RESP 16; O2SAT 99
[2025-04-26] MEDS: BACIGUENT PACKET TP ONE (16:00)
== END 2025-04-26 16:02 | disposition home or self-care (01) ==
LOC: ED 14:56
DX: S61.412A Laceration without foreign body of left hand, initial encounter (principal); W54.8XXA Other contact with dog, initial encounter; Z79.899 Other long term (current) drug therapy; Z72.0 Tobacco use; Z23 Encounter for immunization

== ENCOUNTER 2025-06-12 16:19 | Emergency (ER) | payer MEDICARE ==
--- NOTE | 2025-06-12 16:35 | ERPHSYRPT ---
- History of Present Illness Time Seen by Provider: 06/12/25 16:35 Source: patient, EMS Exam Limitations: no limitations Physician History: This is an 84-year-old white female patient brought to the emergency department by the paramedics secondary to generalized weakness and "I just do not feel well". Patient woke up at 4 AM this morning with chest pain and she took 3 nitroglycerin and the chest pain resolved. She went back to sleep and woke up approximately 10 AM not feeling well generally. She has not had chest pain ever since she woke up at 10 AM. She has felt weak. Patient does see Dr. Wolff in the pain clinic and Dr. Jama as her sand conditioner. Patient does have history of cardiac stent in place and has a pacemaker as well. Patient has no abdominal pain. She has not vomited. She has not had a cough or fever. She denies shortness of breath. Patient does have a history of CHF, hyperlipidemia, hypertension, gastroesophageal reflux disease, seasonal allergies, anxiety and depression as well as arthritis. Patient states that currently, she has no specific complaints other than generalized weakness Timing/Duration: today Severity: mild Associated Symptoms: weakness, No nausea, No vomiting, No abdominal pain, No shortness of breath, No cough, No chest pain, No fever, No headaches Allergies/Adverse Reactions: Sulfa (Sulfonamide Antibiotics) Allergy (Mild, Verified 04/26/25 15:13) states could not sleep adhesive tape Adverse Reaction (Mild, Verified 04/26/25 15:13) Rash Home Medications: Gabapentin [Neurontin] 600 mg PO TID 10/24/17 [History] Lansoprazole [Prevacid] 30 mg PO DAILY 10/24/17 [History] Metoprolol Succinate 50 mg [Toprol Xl 50 MG] 50 mg PO DAILY 10/24/17 [History] ALPRAZolam [Xanax] 1 mg PO TID 11/06/17 [History] Duloxetine HCl 60 mg PO DAILY 05/31/19 [History] Loratadine [Claritin] 10 mg PO DAILY 05/31/19 [History] Rosuvastatin Calcium 20 mg PO DAILY 03/26/21 [History] Sacubitril/Valsartan [Entresto 49 mg-51 mg Tablet] 1 each PO BID 03/26/21 [History] Hx Tetanus, Diphtheria Vaccination/Date Given: Yes Hx Influenza Vaccination/Date Given: No Hx Pneumococcal Vaccination/Date Given: No Travel Risk - International Travel Have you traveled outside of the country in past 3 weeks: No - Emerging Infectious Disease Are you exhibiting symptoms associated with any current EIDs: No - Review of Systems Constitutional: Weakness (Generalized) Eyes: No Symptoms Ears, Nose, & Throat: No Symptoms Respiratory: No Symptoms Cardiac: No Symptoms, No Chest Pain Abdominal/Gastrointestinal: No Symptoms Genitourinary Symptoms: No Symptoms Musculoskeletal: No Symptoms Skin: No Symptoms Neurological: No Symptoms Psychological: No Symptoms Endocrine: No Symptoms Hematologic/Lymphatic: No Symptoms Immunological/Allergic: No Symptoms All Other Systems: Reviewed and Negative - Past Medical History Pertinent Past Medical History: Yes Neurological History: No Pertinent History ENT History: Cataracts Cardiac History: Aneurysm, Congestive Heart Failure, Hypertension Respiratory History: No Pertinent History Endocrine Medical History: No Pertinent History Musculoskeletal History: Arthritis GI Medical History: No Pertinent History History: No Pertinent History Psycho-Social History: Anxiety, Depression Female Reproductive Disorders: Uterine Cancer Other Medical History: spinal stenosis - Past Surgical History Past Surgical History: Yes Neuro Surgical History: No Pertinent History Cardiac: Cardiac Stent Respiratory: No Pertinent History Gastrointestinal: Appendectomy, Cholecystectomy Genitourinary: No Pertinent History Musculoskeletal: Orthopedic Surgery Female Surgical History: Hysterectomy, Dilation & Curettage Other Surgical History: Right knee Surgery. Lower Back Surgery - Social History Smoking Status: Current every day smoker How long have you smoked: 62 years Exposure to second hand smoke: Yes Drug Use: none - Social Determinants of Health Will the patient participate in the screening: Declined to provide - Nursing Vital Signs Nursing Vital Signs: Initial Vital Signs Temperature 97.9 F 06/12/25 16:20 Pulse Rate 104 H 06/12/25 16:20 Respiratory Rate 22 06/12/25 16:20 Blood Pressure 132/79 06/12/25 16:20 O2 Sat by Pulse Oximetry 97 06/12/25 16:20 Pain Scale Pain Intensity 2 - Physical Exam General Appearance: no apparent distress, alert, anxiety Eye Exam: PERRL/EOMI, eyes nml inspection Ears, Nose, Throat Exam: normal ENT inspection, moist mucous membranes Neck Exam: normal inspection, non-tender, supple, full range of motion Respiratory Exam: normal breath sounds, lungs clear, airway intact, No chest tenderness, No respiratory distress Cardiovascular Exam: regular rate/rhythm, normal heart sounds, normal peripheral pulses Gastrointestinal/Abdomen Exam: soft, normal bowel sounds, No tenderness Pelvic Exam: not done Rectal Exam: not done Back Exam: normal inspection, normal range of motion, No CVA tenderness, No vertebral tenderness Extremity Exam: normal inspection, normal range of motion, pelvis stable Neurologic Exam: alert, 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, cooperative, artificial limb maker II-XII nml as tested, nml cerebellar function, nml station & gait, sensation nml Skin Exam: normal color, warm, dry Lymphatic Exam: No adenopathy SpO2 Interpretation: normal O2 Delivery: Room Air - Course Nursing assessment & vital signs reviewed: Yes EKG Interpreted by Me: RATE (109), Sinus Tach, NORMAL AXIS, NORMAL INTERVALS, NORMAL QRS, Other (QTc 460. No acute ischemia) Ordered Tests: Active Orders 24 hr Category Date Time Status EKG-ER Only STAT Care 06/12/25 16:55 Completed IV Insertion STAT Care 06/12/25 16:55 Active CHEST 1 VIEW (PORTABLE) Stat Exams 06/12/25 19:57 Ordered BLOOD CULTURE Stat Lab 06/12/25 17:27 Received CBC W DIFF Stat Lab 06/12/25 17:27 Completed CMP Stat Lab 06/12/25 17:27 Completed CULTURE,URINE Stat Lab 06/12/25 16:55 Received CULTURE,URINE Stat Lab 06/12/25 16:56 Received Lactic Acid Stat Lab 06/12/25 17:20 Completed MAGNESIUM Stat Lab 06/12/25 17:27 Completed MONO SCREEN Stat Lab 06/12/25 17:27 Completed NT PRO BNPII Stat Lab 06/12/25 17:27 Completed PROTIME WITH INR Stat Lab 06/12/25 17:27 Completed TROPONIN Q4H Lab 06/12/25 17:27 Completed TROPONIN Q4H Lab 06/12/25 21:00 Ordered TROPONIN Q4H Lab 06/13/25 01:00 Ordered UA W/RFX UR CULTURE Stat Lab 06/12/25 16:55 Completed Medication Summary Generic Name Dose Route Start Last Admin Trade Name Freq PRN Reason Stop Dose Admin Sodium Chloride 1,000 mls @ 100 mls/hr 06/12/25 17:00 06/12/25 17:17 Sodium Chloride 0.9% 1000 Ml IV 07/12/25 16:59 100 mls/hr .Q10H NAUN Administration Discontinued Medications Generic Name Dose Route Start Last Admin Trade Name Yazmin PRN Reason Stop Dose Admin Furosemide 40 mg 06/12/25 18:46 06/12/25 19:32 Furosemide 40 Mg/4 Ml Vial IV 06/12/25 18:47 40 mg STAT ONE Administration Furosemide Confirm 06/12/25 19:28 Furosemide 40 Mg/4 Ml Vial Administered 06/12/25 19:29 Dose 40 mg .ROUTE .STK-MED ONE Ceftriaxone Sodium 1 gm in 100 mls @ 200 mls/hr 06/12/25 18:46 06/12/25 19:32 Rocephin 1 Gm / 100 Ml Nacl IV 06/12/25 19:15 200 mls/hr STAT ONE 200 mls/hr Administration Ceftriaxone Sodium Confirm 06/12/25 19:28 Rocephin 1 Gm / 100 Ml Nacl Administered 06/12/25 19:29 Dose 1 gm in 100 mls @ ud IV .STK-MED ONE Lab/Rad Data: Laboratory Result Diagrams 06/12/25 17:27 06/12/25 17:27 Laboratory Results 06/12/25 06/12/25 06/12/25 Range/Units 17:30 17:27 17:27 WBC (3.98-10.04) x10^3/uL RBC (3.93-5.22) x10^6/uL Hgb (11.2-15.7) g/dL Hct (34.1-44.9) % MCV (79.4-94.8) fL MCH (25.6-32.2) pg MCHC (32.2-35.5) g/dL RDW (11.7-14.4) % Plt Count (182-369) x10^3/uL MPV (9.4-12.3) fL Gran % (34.0-71.1) % Immature Gran % (Auto) (0.001-0.429) % Nucleat RBC Rel Count (0.00-0.2) % Eos # (Auto) (0.04-0.36) x10^3/uL Immature Gran # (Auto) (0.001-0.031) x10^3u/L Absolute Lymphs (auto) (1.18-3.74) x10^3/uL Absolute Monos (auto) (0.24-0.86) x10^3/uL Absolute Nucleated RBC (0.00-0.012) x10^3u/L Lymphocytes % (19.3-51.7) % Monocytes % (4.7-12.5) % Eosinophils % (0.7-5.8) % Basophils % (0.1-1.2) % Absolute Granulocytes (1.56-6.13) x10^3/uL Basophils # (0.01-0.08) x10^3/uL PT (9.4-12.5) SECONDS INR (0.8-3.0) Sodium (135-145) mmol/L Potassium (3.5-5.1) mmol/L Chloride (98-107) mmol/L Carbon Dioxide (22-30) mmol/L Anion Gap (5-15) MEQ/L BUN (7-17) mg/dL Creatinine (0.52-1.04) mg/dL Estimated GFR ML/MIN Glucose (74-106) mg/dL Lactic Acid (0.4-2.0) Calcium (8.4-10.2) mg/dL Magnesium (1.6-2.3) mg/dL Total Bilirubin (0.2-1.3) mg/dL AST (14-36) U/L ALT (0-35) U/L Alkaline Phosphatase (38-126) U/L Troponin I (0.000-0.033) ng/mL NT-Pro-B Natriuret Pep 41820 (<300) pg/mL Serum Total Protein (6.3-8.2) g/dL Albumin (3.5-5.0) g/dL Urine Color (Yellow) Urine Appearance (Clear) Urine pH (4.6-8.0) Ur Specific [place] (1.005-1.030) Urine Protein (Negative) Urine Glucose (UA) (Negative) mg/dL Urine Ketones (Negative) Urine Blood (Negative) Urine Nitrite (Negative) Urine Bilirubin (Negative) Urine Urobilinogen (0.2) mg/dL Ur Leukocyte Esterase (Negative) U Hyaline Cast (Auto) (0-2) /LPF Urine Microscopic RBC (0-5) /HPF Urine Microscopic WBC (0-5) /HPF Ur Epithelial Cells (None Seen) /HPF Urine Bacteria (None Seen) /HPF Urine Culture Reflexed (NO) Monoscreen NEGATIVE (NEGATIVE) Influenza Type A Ag NEGATIVE (NEGATIVE) Influenza Type B Ag NEGATIVE (NEGATIVE) RSV (PCR) NEGATIVE (NEGATIVE) SARS-CoV-2 (PCR) NEGATIVE (NEGATIVE) 06/12/25 06/12/25 06/12/25 Range/Units 17:27 17:27 17:27 WBC (3.98-10.04) x10^3/uL RBC (3.93-5.22) x10^6/uL Hgb (11.2-15.7) g/dL Hct (34.1-44.9) % MCV (79.4-94.8) fL MCH (25.6-32.2) pg MCHC (32.2-35.5) g/dL RDW (11.7-14.4) % Plt Count (182-369) x10^3/uL MPV (9.4-12.3) fL Gran % (34.0-71.1) % Immature Gran % (Auto) (0.001-0.429) % Nucleat RBC Rel Count (0.00-0.2) % Eos # (Auto) (0.04-0.36) x10^3/uL Immature Gran # (Auto) (0.001-0.031) x10^3u/L Absolute Lymphs (auto) (1.18-3.74) x10^3/uL Absolute Monos (auto) (0.24-0.86) x10^3/uL Absolute Nucleated RBC (0.00-0.012) x10^3u/L Lymphocytes % (19.3-51.7) % Monocytes % (4.7-12.5) % Eosinophils % (0.7-5.8) % Basophils % (0.1-1.2) % Absolute Granulocytes (1.56-6.13) x10^3/uL Basophils # (0.01-0.08) x10^3/uL PT 11.1 (9.4-12.5) SECONDS INR 0.99 (0.8-3.0) Sodium 138 (135-145) mmol/L Potassium 4.0 (3.5-5.1) mmol/L Chloride 103 (98-107) mmol/L Carbon Dioxide 28 (22-30) mmol/L Anion Gap 11.1 (5-15) MEQ/L BUN 25 H (7-17) mg/dL Creatinine 1.50 H (0.52-1.04) mg/dL Estimated GFR 33.7 ML/MIN Glucose 98 (74-106) mg/dL Lactic Acid (0.4-2.0) Calcium 10.1 (8.4-10.2) mg/dL Magnesium 1.3 L (1.6-2.3) mg/dL Total Bilirubin 0.50 (0.2-1.3) mg/dL AST 20 (14-36) U/L ALT 8 (0-35) U/L Alkaline Phosphatase 69 (38-126) U/L Troponin I 0.448 H* (0.000-0.033) ng/mL NT-Pro-B Natriuret Pep (<300) pg/mL Serum Total Protein 6.7 (6.3-8.2) g/dL Albumin 3.8 (3.5-5.0) g/dL Urine Color (Yellow) Urine Appearance (Clear) Urine pH (4.6-8.0) Ur Specific [place] (1.005-1.030) Urine Protein (Negative) Urine Glucose (UA) (Negative) mg/dL Urine Ketones (Negative) Urine Blood (Negative) Urine Nitrite (Negative) Urine Bilirubin (Negative) Urine Urobilinogen (0.2) mg/dL Ur Leukocyte Esterase (Negative) U Hyaline Cast (Auto) (0-2) /LPF Urine Microscopic RBC (0-5) /HPF Urine Microscopic WBC (0-5) /HPF Ur Epithelial Cells (None Seen) /HPF Urine Bacteria (None Seen) /HPF Urine Culture Reflexed (NO) Monoscreen (NEGATIVE) Influenza Type A Ag (NEGATIVE) Influenza Type B Ag (NEGATIVE) RSV (PCR) (NEGATIVE) SARS-CoV-2 (PCR) (NEGATIVE) 06/12/25 06/12/25 06/12/25 Range/Units 17:27 17:20 16:55 WBC 6.4 (3.98-10.04) x10^3/uL RBC 3.51 L (3.93-5.22) x10^6/uL Hgb 9.9 L (11.2-15.7) g/dL Hct 31.4 L (34.1-44.9) % MCV 89.5 (79.4-94.8) fL MCH 28.2 (25.6-32.2) pg MCHC 31.5 L (32.2-35.5) g/dL RDW 15.3 H (11.7-14.4) % Plt Count 199 (182-369) x10^3/uL MPV 10.2 (9.4-12.3) fL Gran % 62.3 (34.0-71.1) % Immature Gran % (Auto) 0.3 (0.001-0.429) % Nucleat RBC Rel Count 0.0 (0.00-0.2) % Eos # (Auto) 0.01 L (0.04-0.36) x10^3/uL Immature Gran # (Auto) 0.02 (0.001-0.031) x10^3u/L Absolute Lymphs (auto) 1.70 (1.18-3.74) x10^3/uL Absolute Monos (auto) 0.64 (0.24-0.86) x10^3/uL Absolute Nucleated RBC 0.00 (0.00-0.012) x10^3u/L Lymphocytes % 26.7 (19.3-51.7) % Monocytes % 10.0 (4.7-12.5) % Eosinophils % 0.2 L (0.7-5.8) % Basophils % 0.5 (0.1-1.2) % Absolute Granulocytes 3.97 (1.56-6.13) x10^3/uL Basophils # 0.03 (0.01-0.08) x10^3/uL PT (9.4-12.5) SECONDS INR (0.8-3.0) Sodium (135-145) mmol/L Potassium (3.5-5.1) mmol/L Chloride (98-107) mmol/L Carbon Dioxide (22-30) mmol/L Anion Gap (5-15) MEQ/L BUN (7-17) mg/dL Creatinine (0.52-1.04) mg/dL Estimated GFR ML/MIN Glucose (74-106) mg/dL Lactic Acid 1.8 (0.4-2.0) Calcium (8.4-10.2) mg/dL Magnesium (1.6-2.3) mg/dL Total Bilirubin (0.2-1.3) mg/dL AST (14-36) U/L ALT (0-35) U/L Alkaline Phosphatase (38-126) U/L Troponin I (0.000-0.033) ng/mL NT-Pro-B Natriuret Pep (<300) pg/mL Serum Total Protein (6.3-8.2) g/dL Albumin (3.5-5.0) g/dL Urine Color Yellow (Yellow) Urine Appearance Cloudy A (Clear) Urine pH 5.0 (4.6-8.0) Ur Specific [place] 1.025 (1.005-1.030) Urine Protein 30 (Negative) Urine Glucose (UA) Negative (Negative) mg/dL Urine Ketones Trace A (Negative) Urine Blood Negative (Negative) Urine Nitrite Positive A (Negative) Urine Bilirubin Negative (Negative) Urine Urobilinogen 1.0 A (0.2) mg/dL Ur Leukocyte Esterase Small A (Negative) U Hyaline Cast (Auto) 6-10 A (0-2) /LPF Urine Microscopic RBC 0-2 (0-5) /HPF Urine Microscopic WBC 21-50 A (0-5) /HPF Ur Epithelial Cells Many A (None Seen) /HPF Urine Bacteria Many A (None Seen) /HPF Urine Culture Reflexed YES (NO) Monoscreen (NEGATIVE) Influenza Type A Ag (NEGATIVE) Influenza Type B Ag (NEGATIVE) RSV (PCR) (NEGATIVE) SARS-CoV-2 (PCR) (NEGATIVE) - Progress Progress: improved, re-examined Progress Note: 06/12/25 17:33 My medical decision making and the assignment of moderate to high complexity of this patient's medical issue today is based on review of the patient's past medical history, reviewed the patient's medication list, reviewed patient drug allergy list, history presents with physical findings on examination. The workup in this patient includes placement of intravenous line, infusion of low rate crystalloid, CBC, CMP, magnesium, urinalysis, twelve-lead EKG, troponin level, viral swabs, monotest, BNP level Differential diagnosis includes was not limited to anemia, arrhythmia, urinary tract infection, dehydration, myocardial infarction, electrolyte abnormalities, CHF exacerbation, viral illness 06/12/25 19:50 I interpreted the patient's laboratory data results. Based on laboratory data results, patient has an elevated BNP of 12,100 consistent with CHF exacerbation, an elevated troponin level 0.444 consistent with non-STEMI, GFR of 33 consistent with chronic renal disease and a urinary tract infection. I spoke with sand conditioner , at [facility]. I reviewed the patient history, presenting complaint, physical findings on examination and workup results with him. He accepts the patient to be transferred to [facility] under an accepting hospitalist. He will provide cardiology consultation. We are awaiting a callback from the hospitalist. 06/12/25 19:[address] Mtz, the hospitalist on-call at [facility]. I reviewed the patient history, presenting complaint, physical findings on examination, workup results and my discussion with , the sand conditioner at [facility]. He accepts the patient in transfer. They will call us when the bed is ready Counseled pt/family regarding: lab results, diagnosis, need for follow-up, rad results - Departure Departure Disposition: Transfer Clinical Impression: CHF exacerbation, Non-STEMI (non-ST elevated myocardial infarction), Chronic renal failure, Elevated troponin, UTI (urinary tract infection) Condition: Fair Critical Care Time: No Referrals: ANDRES VELASQUEZ [Primary Care Provider, [facility]] - Follow up/PCP as directed Instructions: Heart Failure
[2025-06-12 16:39] VITALS: TEMP 97.9
[2025-06-12 17:34] LABS: BASOPHIL % 0.5 % (0.1-1.2); Basophil (Absolute #) 0.03 x10^3/uL (0.01-0.08); Eosinophil (Absolute #) 0.01 x10^3/uL (0.04-0.36); Hematocrit 31.4 % (34.1-44.9); Hemoglobin 9.9 g/dL (11.2-15.7); IMMATURE GRAN # 0.02 x10^3u/L (0.001-0.031); IMMATURE GRAN % 0.3 % (0.001-0.429); Lymphocyte (Absolute #) 1.70 x10^3/uL (1.18-3.74); Mean Corpuscular Hemoglobin 28.2 pg (25.6-32.2); Mean Corpuscular Hgb Concent. 31.5 g/dL (32.2-35.5); Monocyte (Absolute #) 0.64 x10^3/uL (0.24-0.86); NUCLEATED RBC # 0.00 x10^3u/L (0.00-0.012); NUCLEATED RBC % 0.0 % (0.00-0.2); Platelet Count 199 x10^3/uL (182-369); Red Blood Count 3.51 x10^6/uL (3.93-5.22); White Blood Count 6.4 x10^3/uL (3.98-10.04)
[2025-06-12 17:57] LABS: Calcium 10.1 mg/dL (8.4-10.2); Carbon Dioxide 28.0 mmol/L (22-30); Creatinine 1 1.5 mg/dL (0.52-1.04); EST GLOMERULAR FILTRATION RATE 33.7 ML/MIN; Glucose 98.0 mg/dL (74-106); Potassium 4.0 mmol/L (3.5-5.1); SGOT/AST 20.0 U/L (14-36); SGPT/ALT 8.0 U/L (0-35); Total Protein 6.7 g/dL (6.3-8.2)
[2025-06-12 18:14] LABS: INFLUENZA A NEGATIVE (NEGATIVE); INFLUENZA B NEGATIVE (NEGATIVE); RESPIRATORY SYNCTIAL VIRUS NEGATIVE (NEGATIVE); SARS-CoV-2 Xpert Express NEGATIVE (NEGATIVE)
[2025-06-12 18:14] LABS: Glucose, Urine Negative (Negative); Protein,Urine Dip 30 (Negative); RBC 0-2 /HPF (0-5); WBC 21-50 /HPF (0-5)
[2025-06-12 18:38] LABS: INR 0.99 (0.8-3.0); PROTIME 11.1 SECONDS (9.4-12.5)
[2025-06-12] MEDS ORDERED: Lasix 40 MG/4 ML ONE (19:28)
[2025-06-12] MEDS ORDERED: ROCEPHIN 1 GM / 100 ML NaCl 1 GM/100 ML IVPB IV ONE (19:28)
[2025-06-12] MEDS: Lasix 40 MG/4 ML IV ONE (19:32)
[2025-06-12] MEDS: ROCEPHIN 1 GM / 100 ML NaCl 1 GM/100 ML IVPB IV ONE (19:32)
[2025-06-12 21:03] VITALS: BP 145/88; O2SAT 97
[2025-06-12 21:04] VITALS: PULSE 112; RESP 26
--- NOTE | 2025-06-13 08:51 | XRAY ---
Indication: Short of breath. Comparison: March 26, 2021 Portable chest now demonstrates cardiomegaly with left dual lead pacemaker. Lungs remain hyperinflated and clear. Bony thorax intact again with osteopenia, mild degenerative changes, and mild dextroscoliosis. No acute findings.
== END 2025-06-12 22:04 | disposition short-term general hospital (02) ==
LOC: ED 16:19
DX: I21.4 Non-ST elevation (NSTEMI) myocardial infarction (principal); N39.0 Urinary tract infection, site not specified; I13.0 Hypertensive heart and chronic kidney disease with heart failure and stage 1 through stage 4 chronic kidney disease, or unspecified chronic kidney disease; I50.9 Heart failure, unspecified; N18.9 Chronic kidney disease, unspecified; R77.8 Other specified abnormalities of plasma proteins; Z79.899 Other long term (current) drug therapy; Z72.0 Tobacco use